=== PATIENT | male | born 1960 | race Caucasian/White ===

== ENCOUNTER 2016-12-11 14:15 | Day surgery (SDC) | payer BC, MEDICARE ==
[2016-12-05 09:56] LABS: HEMATOCRIT 48.8 % (37.9-51.0); HEMOGLOBIN 17.2 g/dL (13.5-17.0); HGB HCT DIFFERENCE 2.8; MEAN CORPUSCULAR HEMOGLOBIN 34.5 pg (27.0-33.4); MEAN CORPUSCULAR HGB CONC 35.3 g/dL (32.0-36.0); MEAN CORPUSCULAR VOLUME 98 fl (80-97); RED BLOOD COUNT 4.99 10^6/uL (4.35-5.55); RED CELL DISTRIBUTION WIDTH 12.9 % (11.5-14.0); WHITE BLOOD COUNT 4.4 10^3/uL (4.0-10.5)
[2016-12-05 10:35] LABS: ANION GAP 10 (5-19); BLOOD UREA NITROGEN 6 mg/dL (7-20); CALCIUM 9.7 mg/dL (8.4-10.2); CARBON DIOXIDE 25 mmol/L (22-30); CHLORIDE 100 mmol/L (98-107); CREATININE RESULT 0.97 mg/dL (0.52-1.25); GLUCOSE 100 mg/dL (75-110); POTASSIUM 4.6 mmol/L (3.6-5.0); SODIUM 135.1 mmol/L (137-145)
[~2016-12-11 14:15] MED LIST: ACETAMINOPHEN 325 MG TABLET PO PRN; CEFAZOLIN 1 GM/D5W RTU 1 GM/50 ML RTUPB IV PRN; DEXAMETHASONE SOD PHOSPHATE INJ 4 MG/1 ML VIAL ONE; KETOROLAC TROMETHAMINE 60 MG/2 ML SDV ONE; LACTATED RINGERS 1000 ML IV PRN; LIDOCAINE 0.5% INJ-PF (5 MG/ML) 50 ML SDV SUBCUT PRN; LIDOCAINE 2% INJ-PF (20 MG/ML) 10 ML AMPUL ONE; METOCLOPRAMIDE HCL INJ/PF 10 MG/2 ML SDV ONE; ONDANSETRON HCL INJ/PF 4 MG/2 ML SDV ONE; SUCCINYLCHOLINE CHLORIDE INJ 200 MG/10 ML VIAL ONE
[2016-12-11] MEDS ORDERED: RINGERS SOLUTION,LACTATED 500 ML IV ONE (16:30)
[2016-12-11] MEDS ORDERED: DEXMEDETOMIDINE INJ 80 MCG/20 ML VIAL IV ONE (17:09)
[2016-12-11] MEDS ORDERED: EPHEDRINE SULFATE INJ 50 MG/1 ML AMPULE ONE (17:09)
[2016-12-11] MEDS ORDERED: FENTANYL CITRATE INJ/PF 250 MCG/5 ML AMPULE ONE (17:09)
[2016-12-11] MEDS ORDERED: ACETAMINOPHEN 100 ML IV ONE (17:09)
[2016-12-11] MEDS ORDERED: MIDAZOLAM 2 MG/2 ML INJ ONE (17:09)
[2016-12-11] MEDS ORDERED: PROPOFOL INJ 200 MG/20 ML VIAL IV ONE (17:09)
[2016-12-11] MEDS ORDERED: BUPIVACAINE HCL 0.25 % INJ/PF (2.5 MG/1 ML) 30 ML VIAL INJ ONE ×2 (17:50)
[2016-12-11] MEDS ORDERED: MEPERIDINE HCL/PF INJ 25 MG/1 ML DISP.SYRIN IV PRN (17:54)
[2016-12-11] MEDS ORDERED: MORPHINE SULFATE 10 MG/ML INJ IV PRN (17:54)
[2016-12-11] MEDS ORDERED: PROMETHAZINE HCL INJ 25 MG/1 ML VIAL IV PRN ×2 (17:54)
[2016-12-11] MEDS ORDERED: ONDANSETRON HCL INJ/PF 4 MG/2 ML SDV IV PRN ×2 (17:54→18:23)
[2016-12-11] MEDS ORDERED: DIPHENHYDRAMINE HCL 50 MG/ML VIAL IV PRN (17:54)
[2016-12-11] MEDS ORDERED: FENTANYL CITRATE INJ/PF 100 MCG/2 ML AMPUL IV PRN ×3 (17:54)
[2016-12-11] MEDS ORDERED: OXYCODONE-ACETAMINOPHEN 5-325 MG TABLET PO PRN (18:23)
[2016-12-11] MEDS ORDERED: RINGERS SOLUTION,LACTATED 1,000 ML IV PRN (18:23)
--- NOTE | 2016-12-11 18:23 | Operative Report ---
Operative Report DATE OF SURGERY: 12/11/16 PREOPERATIVE DIAGNOSIS: Umbilical hernia POSTOPERATIVE DIAGNOSIS: Umbilical hernia OPERATION: Umbilical hernia repair SURGEON: EMMANUELLE MELENDEZ ANESTHESIA: GA TISSUE REMOVED OR ALTERED: Hernia sac and omentum COMPLICATIONS: None ESTIMATED BLOOD LOSS: minimal INTRAOPERATIVE FINDINGS: 1.5 cm multiple hernia fascial defect with incarcerated omentum PROCEDURE: Informed consent was obtained. Patient was brought to the operating room placed operating table in the supine position. After satisfactory induction of general anesthesia patient's abdomen was prepped and draped in usual sterile fashion. A semicircular infraumbilical incision was made and dissection carried down. The bellybutton was dissected off of the underlying hernia sac. The herniated contents were dissected free from the surrounding structures. The hernia sac was opened revealing incarcerated omentum. Portion of the omentum was taken by clamping dividing and tying. And remainder of the omentum was tucked back into the peritoneal cavity. The fascial defect measured about 1.5 cm in size. The hernia sac was excised. There were no underlying bowel adhesions. Primary repair was performed closing the fascia and the transverse orientation using interrupted Ethibond sutures. The repair came together well without tension. The bellybutton was tacked to the underlying fascia using interrupted Vicryl sutures. Hemostasis appeared excellent. The skin was closed with deep dermal interrupted Vicryl sutures followed by running subcuticular Monocryl suture. Marcaine was injected at the operative site. Patient tolerated procedure well with no apparent complications and was taken to the recovery area in stable condition.
--- NOTE | 2016-12-11 18:30 | PDOC DISCHARGE SUMMARY ---
Discharge Summary (SDC) - Discharge Final Diagnosis: Umbilical hernia Date of Surgery: 12/11/16 Discharge Date: 12/11/16 Condition: Good Treatment or Instructions: Underwent umbilical hernia repair. May discharge the patient home when met discharge criteria. Follow-up with me in 2 weeks. Stay active but avoid strenuous activity. May shower in 2 days. Keep Steri-Strips on. Prescriptions: Oxycodone HCl/Acetaminophen [Percocet 5-325 mg Tablet] 1 tab PO ASDIR PRN #25 tablet PRN Reason: Discharge Diet: As Tolerated Discharge Activity: Activity As Tolerated - Stay active but avoid strenuous activity. Report the Following to Your Physician Immediately: Fever over 101 Degrees, Unusual Bleeding, Redness, Drainage-Foul Smelling
[2016-12-11 20:25] VITALS: BP 169/91
--- NOTE | 2016-12-12 09:29 | EKG REPORT ---
SEVERITY:- NORMAL ECG - SINUS RHYTHM : Confirmed by: Jaron Paiz MD 12-Dec-2016 09:28:29
== END 2016-12-11 19:45 | disposition home or self-care (01) ==
LOC: OROUT 14:15 → 4S 19:39 → OROUT 19:45
PROVIDERS: ATTEND Surgery
PROC: 0WQF0ZZ Repair Abdominal Wall, Open Approach (ICD-10-PCS; principal; 2016-12-11 16:30)
DX: K42.9 Umbilical hernia without obstruction or gangrene (principal); E03.9 Hypothyroidism, unspecified; F43.10 Post-traumatic stress disorder, unspecified; F17.210 Nicotine dependence, cigarettes, uncomplicated; K21.9 Gastro-esophageal reflux disease without esophagitis; Z85.01 Personal history of malignant neoplasm of esophagus; Z79.899 Other long term (current) drug therapy; Z91.040 Latex allergy status
CPT/HCPCS: 36415; 85027; 80048; 88302 ×2; 93005; 93010; 49585; J2250; J0690; J1100; J3490 ×3; J1885; J3010; J2765; A9270; J0330; J2405; J2704; J0131; 750

== ENCOUNTER → 2019-02-15 | Outpatient (CLI) | payer MEDICARE ==
--- NOTE | 2019-02-17 16:26 | RADIOLOGY REPORT (SQ) ---
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 RADIONUCLIDE AND DOSE: 10.4 mCi F18 FDG The route of agent administration: Intravenous FASTING BLOOD SUGAR: 99 mg/dl CONTRAST TYPE AND DOSE: No CT contrast given. TECHNIQUE: Blood glucose level was verified. Above dose of FDG was injected intravenously. 2-D seg mented attenuation correction images were obtained from the base of the skull to the midthighs. Nonc ontrast CT images were obtained for attenuation correction and fusion with emission images. CT image s were performed without oral or intravenous contrast and are not sensitive for parenchymal lesions. A series of overlapping emission PET images were obtained. Images reviewed and manipulated at [facility] work station by the radiologist. Images stored on PACS. LIMITATIONS: None. FINDINGS: HEAD AND NECK: An ill-defined 7.5 x 5.2 cm mass is present in the left submandibular trian gle, extending into the left posterior tongue base and obliterating the left submandibular gland. Th is lesion has increased uptake with SUV of 11. There is mild narrowing of the hypopharynx and deviat ion of the airway to the right. Along the inferior aspect of this ill-defined mass, a well-circumscribed 4.7 x 4 cm cyst is present w ithout associated metabolic activity. Patient is post supraglottic laryngectomy with esophageal speech prosthesis. No other areas of incre ased metabolic activity over the head or neck. CHEST: No areas of abnormal metabolic activity in the chest. ABDOMEN AND PELVIS: No areas of abnormal metabolic activity in the abdomen or pelvis. Expected physi ologic activity is present in the genitourinary system and bowel. PROXIMAL LOWER EXTREMITIES: No areas of abnormal metabolic activity in the soft tissues of the lower extremities. BONES: No abnormal metabolic activity in the visualized skeleton. ADDITIONAL CT FINDINGS: Colonic diverticuli without CT signs of acute diverticulitis. Bandlike scarr ing in the lung bases bilaterally OTHER: Liver background activity 2.4 SUV. 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
== END ==
LOC: RAD 17:22
PROVIDERS: ATTEND Otolaryngology
DX: C02.9 Malignant neoplasm of tongue, unspecified (principal)
CPT/HCPCS: 78815; A9552

== ENCOUNTER 2019-04-11 12:22 | Inpatient (IN) | payer MEDICARE ==
[2019-04-11] MEDS ORDERED: NORMAL SALINE 1000 ML 1,000 ML IV ONE ×3 (12:43→18:00)
--- NOTE | 2019-04-11 12:45 | ER Document Report ---
ED Medical Screen (RME) - General Chief Complaint: Weakness Stated Complaint: WEAKNESS Time Seen by Provider: 04/11/19 12:38 Primary Care Provider: SARI MAYBERRY MD [Primary Care Provider] - Follow up as needed Mode of Arrival: Wheelchair Information source: Patient Notes: Patient presents with a complaint of low blood pressure feeling lightheaded dizzy and weak. Patient is currently receiving chemotherapy and had a history of high blood pressure. Patient was taken off of his blood pressure last week due to a drop in the blood pressure. Patient is also on antibiotics for recent skin infection. Patient denies any chest discomfort. 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 I have greeted and performed a rapid initial assessment of this patient. A comprehensive ED assessment and evaluation of the patient, analysis of test results and completion of the medical decision making process will be conducted by additional ED providers. TRAVEL OUTSIDE OF THE [place] IN LAST 30 DAYS: No - Related Data Allergies/Adverse Reactions: Tetanus Vaccines and Toxoid Allergy (Verified 12/11/16 15:39) Past Medical History - Past Medical History Cardiac Medical History: Reports: Hx Hypertension - "Sometimes its a little high" Denies: Hx Coronary Artery Disease, Hx Heart Attack Pulmonary Medical History: Reports: Hx Pneumonia - "A long time ago and it damaged my lungs" 20+ years ago Denies: Hx Asthma, Hx Bronchitis, Hx COPD Neurological Medical History: Denies: Hx Cerebrovascular Accident, Hx Seizures Musculoskeltal Medical History: Denies Hx Arthritis - Immunizations Hx Diphtheria, Pertussis, Tetanus Vaccination: No Physical Exam - Vital signs Vitals: Temp Pulse Resp BP Pulse Ox 98.1 F 114 H 16 85/55 L 99 04/11/19 12:35 04/11/19 12:35 04/11/19 12:35 04/11/19 12:35 04/11/19 12:35 - Cardiovascular Rhythm: Tachycardia Heart sounds: S1 appreciated, S2 appreciated Course - Vital Signs Vital signs: Temp Pulse Resp BP Pulse Ox 98.1 F 114 H 16 85/55 L 99 04/11/19 12:35 04/11/19 12:35 04/11/19 12:35 04/11/19 12:35 04/11/19 12:35 Doctor's Discharge - Discharge Referrals: SARI MAYBERRY MD [Primary Care Provider] - Follow up as needed
[2019-04-11 14:02] LABS: ABSOLUTE LYMPHOCYTES (AUTO) 0.1 10^3/uL (0.5-4.7); ABSOLUTE NEUT (AUTO) 0.7 10^3/uL (1.7-8.2); BASOPHILS % (AUTO) 0.8 % (0-2); EOSINOPHILS % (AUTO) 0.2 % (0-6); HEMATOCRIT 26.9 % (37.9-51.0); HEMOGLOBIN 9.7 g/dL (13.5-17.0); LYMPHOCYTES % (AUTO) 10.6 % (13-45); MEAN CORPUSCULAR HEMOGLOBIN 33.1 pg (27.0-33.4); MEAN CORPUSCULAR HGB CONC 36.1 g/dL (32.0-36.0); MEAN CORPUSCULAR VOLUME 92 fl (80-97); MONOCYTES % (AUTO) 1.7 % (3-13); PLATELET COUNT 103 10^3/uL (150-450); RED BLOOD COUNT 2.93 10^6/uL (4.35-5.55); RED CELL DISTRIBUTION WIDTH 11.7 % (11.5-14.0); SEGMENTED NEUTROPHILS % (AUTO) 86.7 % (42-78); TOTAL CELLS COUNTED % (AUTO) 100 %
[2019-04-11 14:03] LABS: VENOUS BLOOD BASE EXCESS 1.7 mmol/L; VENOUS BLOOD HCO3 27.7 mmol/L (20-32); VENOUS BLOOD PCO2 48.8 mmHg (35-63); VENOUS BLOOD PH 7.37 (7.30-7.42)
[2019-04-11 14:05] LABS: PROTHROMBIN TIME 18.2 SEC (11.4-15.4)
--- NOTE | 2019-04-11 14:07 | RADIOLOGY REPORT (SQ) ---
EXAM DESCRIPTION: CHEST SINGLE VIEW COMPLETED DATE/TIME: 04/11/2019 1:26 pm REASON FOR STUDY: chemo, hypotension COMPARISON: None. EXAM PARAMETERS: NUMBER OF VIEWS: One view. TECHNIQUE: Single frontal radiographic view of the chest acquired. RADIATION DOSE: NA LIMITATIONS: Positioning. FINDINGS: LUNGS AND PLEURA: Volume loss on the right. No infiltrate. Clips overlying the thyroid b ed. MEDIASTINUM AND HILAR STRUCTURES: No masses. Contour normal. HEART AND VASCULAR STRUCTURES: Heart normal in size. Normal vasculature. BONES: No acute findings. HARDWARE: None in the chest. OTHER: No other significant finding. IMPRESSION: NO ACUTE RADIOGRAPHIC FINDING IN THE CHEST. TECHNICAL DOCUMENTATION: JOB ID: [id number] [employer]- All Rights Reserved Reading location - IP/workstation name: [email or web address]
[2019-04-11 14:20] LABS: ALANINE AMINOTRANSFERASE 26 U/L (21-72); ALBUMIN 2.9 g/dL (3.5-5.0); ALKALINE PHOSPHATASE 61 U/L (38-126); ANION GAP 9 (5-19); ASPARTATE AMINO TRANSFERASE 17 U/L (17-59); BILIRUBIN,DIRECT 0.9 mg/dL (0.0-0.4); BILIRUBIN,TOTAL 1.9 mg/dL (0.2-1.3); BLOOD UREA NITROGEN 21 mg/dL (7-20); CALCIUM 8.3 mg/dL (8.4-10.2); CARBON DIOXIDE 28 mmol/L (22-30); CHLORIDE 95 mmol/L (98-107); GLUCOSE 123 mg/dL (75-110); POTASSIUM 3.5 mmol/L (3.6-5.0); SODIUM 132.1 mmol/L (137-145); TOTAL PROTEIN 5.3 g/dL (6.3-8.2)
[2019-04-11 14:26] LABS: WHITE BLOOD COUNT 0.8 10^3/uL (4.0-10.5)
[2019-04-11 14:27] LABS: RBC MORPHOLOGY COMMENT NORMO-CYTIC/CHROMIC
[2019-04-11 14:28] LABS: TOXIC GRANULATION SLIGHT
[2019-04-11 14:29] LABS: PLATELET COMMENT DECREASED; TOXIC VACUOLATION PRESENT
--- NOTE | 2019-04-11 15:10 | ER Document Report ---
ED General - General Mode of Arrival: Wheelchair TRAVEL OUTSIDE OF THE [place] IN LAST 30 DAYS: No <KYAW ALEJO - Last Filed: 04/11/19 15:06> - Related Data Home Medications: Omeprazole, Synthroid, hydrochlorothiazide, Ventolin, o xycodone, potassium, fluconazole, sucralfate, prochlorperazine, [place] mouthwash <KARLY MARTE - Last Filed: 04/11/19 18:03> - General Chief Complaint: Weakness Stated Complaint: WEAKNESS Time Seen by Provider: 04/11/19 12:38 Primary Care Provider: SARI MAYBERRY MD [NO LOCAL MD] - Follow up as needed - [facility] Notes: Patient is a 58-year-old gentleman, currently with cancer of the jaw, receiving chemotherapy, who presents emergency department for evaluation of dizziness, weakness, seeing spots. 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 He just received his fourth dose of chemotherapy last . On Thursday he was found to be hypotensive, hypokalemic, hypomagnesemic. He was given IV fluids and electrolyte replacement. He was taken off of all of his blood pressure medications. He has been on antibiotics recently for "lesions" on his scalp. He was told that they were likely infectious. He has been on doxycycline, took a dose this morning, and it seemed to have improved. He does have some redness and swelling in his anterior neck area. He states that is been present and new over the last 2 to 3 days. No known fevers. The patient states he has had chills with chemotherapy in the past. Still urinating. Normal bowel movements. (KYAW ALEJO) - Related Data Allergies/Adverse Reactions: Tetanus Vaccines and Toxoid Allergy (Verified 12/11/16 15:39) Past Medical History - General Information source: Patient, Relative - Social History Smoking Status: Former Smoker Family History: Reviewed & Not Pertinent Patient has suicidal ideation: No Patient has homicidal ideation: No - Past Medical History Cardiac Medical History: Reports: Hx Hypertension - Recently taken off medication Denies: Hx Coronary Artery Disease, Hx Heart Attack Pulmonary Medical History: Reports: Hx Pneumonia - "A long time ago and it damaged my lungs" 20+ years ago Denies: Hx Asthma, Hx Bronchitis, Hx COPD Neurological Medical History: Denies: Hx Cerebrovascular Accident, Hx Seizures Renal/ Medical History: Denies: Hx Peritoneal Dialysis Malignancy Medical History: Reports Other - Cancer of mandible, 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 GI Medical History: Reports: Hx Gastroesophageal Reflux Disease Musculoskeletal Medical History: Denies Hx Arthritis - Immunizations Hx Diphtheria, Pertussis, Tetanus Vaccination: No - Patient allergic <KYAW ALEJO - Last Filed: 04/11/19 15:06> Review of Systems - Review of Systems Constitutional: See HPI EENT: See HPI Cardiovascular: See HPI Respiratory: No symptoms reported Gastrointestinal: No symptoms reported Genitourinary: No symptoms reported Male Genitourinary: No symptoms reported Musculoskeletal: No symptoms reported Skin: See HPI Neurological/Psychological: No symptoms reported <KYAW ALEJO - Last Filed: 04/11/19 15:06> Physical Exam <KYAW ALEJO - Last Filed: 04/11/19 15:06> - Vital signs Vitals: Temp Pulse Resp BP Pulse Ox 98.1 F 114 H 16 85/55 L 99 04/11/19 12:35 04/11/19 12:35 04/11/19 12:35 04/11/19 12:35 04/11/19 12:35 - Notes Notes: This is a 58-year-old male who appears stated age in no acute distress. Head is normocephalic and atraumatic. Pupils are equal round, reactive to light. Oral mucosa is moist. Patient has trach in place. He has significant surrounding erythema and edema that tracks up under his mandible. There is induration surrounding the entire trach site. Heart is regular rate and rhythm, lungs are clear to auscultation bilaterally. Abdomen is soft, nontender, normal active bowel sounds. Extremities without cyanosis or clubbing, no edema. Posterior calves nontender. Peripheral pulses are equal. Patient is awake and alert. Moves all 4 extremities spontaneously. (KYAW ALEJO) Course - Laboratory Result Diagrams: 04/11/19 13:40 04/11/19 13:40 <KYAW ALEJO - Last Filed: 04/11/19 15:06> - Laboratory Result Diagrams: 04/11/19 13:40 04/11/19 13:40 - Diagnostic Test Radiology reviewed: Reports reviewed <KARLY MARTE - Last Filed: 07/01/19 18:03> - Re-evaluation Re-evalutation: 04/11/19 15:09 Patient presents emergency department for evaluation. He had initial laboratory investigations as ordered through triage. I am concerned about the possibility of this patient being septic as an etiology of his low blood pressure. The erythema to his anterior neck for him is brand-new. He is pancytopenic from his chemotherapy. He is hypotensive and tachycardic upon arrival. He is already been on doxycycline, and I am concerned about cellulitis and/or abscess in his anterior neck. Patient is given further IV fluids, as he has no history of congestive heart failure. Obtaining CT scan of the neck to rule out abscess. (KYAW ALEJO) 04/11/19 17:58 CT scan revealed tumor that is shrunken, but could not rule out abscess. Patient has had 2 L of IV fluid in his blood pressure is still 91/53. His white count is very low, although is not truly neutropenic. His absolute neutrophil count is over 500. My primary concern in this patient is that his symptoms are beyond secondary to dehydration, but more secondary to sepsis. He does have a low white count, is tachycardic, and has a source of potential infection surrounding his trach. He was medicated with cefepime and vancomycin. I spoke with Dr. Sherman, he will admit the patient. (KARLY MARTE) - Vital Signs Vital signs: Temp Pulse Resp BP Pulse Ox 98.1 F 114 H 20 94/58 L 91 L 04/11/19 12:35 04/11/19 12:35 04/11/19 14:01 04/11/19 14:01 04/11/19 14:00 - Laboratory Laboratory results interpreted by me: 04/11/19 04/11/19 04/11/19 13:26 13:40 13:40 WBC 0.8 L* RBC 2.93 L Hgb 9.7 L Hct 26.9 L MCHC 36.1 H Plt Count 103 L Seg Neutrophils % 86.7 H Lymphocytes % 10.6 L Monocytes % 1.7 L Absolute Neutrophils 0.7 L Absolute Lymphocytes 0.1 L Absolute Monocytes 0.0 L PT 18.2 H Sodium Potassium Chloride BUN Glucose POC Glucose 137 H Calcium Magnesium Total Bilirubin Direct Bilirubin Total Protein Albumin Urine Protein Urine Blood Urine Urobilinogen 07/10/3004/11/19 04/11/19 13:40 13:40 15:35 WBC RBC Hgb Hct MCHC Plt Count Seg Neutrophils % Lymphocytes % Monocytes % Absolute Neutrophils Absolute Lymphocytes Absolute Monocytes PT Sodium 132.1 L Potassium 3.5 L Chloride 95 L BUN 21 H Glucose 123 H POC Glucose Calcium 8.3 L Magnesium 1.4 L Total Bilirubin 1.9 H Direct Bilirubin 0.9 H Total Protein 5.3 L Albumin 2.9 L Urine Protein 100 H Urine Blood SMALL H Urine Urobilinogen 2.0 H - Diagnostic Test Radiology results interpreted by me: 04/11/19 17:59 Chest X-Ray 04/11/19 12:44 IMPRESSION: NO ACUTE RADIOGRAPHIC FINDING IN THE CHEST. Soft Tissue Neck CT 04/11/19 14:59 IMPRESSION: Postoperative findings of laryngectomy and neck dissection. There is a redemonstrated large left submandibular mass, although slightly decreased in size and bulk compared to prior examination is now overtly cavitary, measuring approximately 7.9 x 3.4 x 6.8 cm. Infection or abscess within a necrotic mass cannot be excluded. This may communicate to the oral cavity although an obvious communication is not visualized. (KARLY MARTE) Discharge <KYAW ALEJO H - Last Filed: 04/11/19 15:06> - Discharge Admitting Provider: Whit (Hospitalist) Unit Admitted: [facility] <KARLY MARTE - Last Filed: 04/11/19 18:03> - Discharge Clinical Impression: Sepsis, Hyponatremia, Hypotension Condition: Stable Disposition: ADMITTED INPATIENT Referrals: SARI MAYBERRY MD [NO LOCAL MD] - Follow up as needed
[2019-04-11] MEDS ORDERED: ONDANSETRON HCL INJ/PF 4 MG/2 ML SDV IV ONE (15:37)
[2019-04-11] MEDS ORDERED: HYDROMORPHONE HCL INJ/PF 2 MG/ML AMPULE IV ONE (15:37)
--- NOTE | 2019-04-11 16:11 | RADIOLOGY REPORT (SQ) ---
EXAM DESCRIPTION: CT SOFT TISSUE NECK WITH COMPLETED DATE/TIME: 04/11/2019 3:49 pm REASON FOR STUDY: erythema, induration anterior neck COMPARISON: PET-CT, 02/15/2019 TECHNIQUE: Post IV contrasted scanning from skull base through lung apices with review of bone, soft tissue and lung windows. Reconstructed coronal and sagittal MPR images reviewed. All images stored on PACS. All CT scanners at this facility use dose modulation, iterative reconstruction, and/or weight based d osing when appropriate to reduce radiation dose to as low as reasonably achievable (ALARA). [facility]: Dose Right [facility]: CareDose [facility]: Dose Right [facility]: Teradose 4D [facility]: MIOX CONTRAST TYPE AND DOSE: contrast/concentration: Isovue 350.00 mg/ml; Total Contrast Delivered: 75.0 ml; Total Saline Delivered: 55.0 ml RENAL FUNCTION: GFR > 60. RADIATION DOSE: CT Rad equipment meets quality standard of care and radiation dose reduction techniq ues were employed. CTDIvol: 14.7 mGy. DLP: 442 mGy-cm. . LIMITATIONS: None. FINDINGS: SKULL BASE: Intact. MAJOR SALIVARY GLANDS: No solid or cystic masses. No inflammatory changes. LYMPHADENOPATHY: No evident lymphadenopathy. Postoperative findings of prior bilateral neck dissecti on. MUCOSAL MASSES OR ASYMMETRY: Redemonstrated large left-sided submandibular mass, which although sligh tly decreased in size and bulk compared to prior examination is now overtly cavitary, measuring appro ximately 7.9 x 3.4 x 6.8 cm LARYNX/CORDS: Status post laryngectomy with tracheostomy. VASCULAR STRUCTURES: The major vessels are patent. LUNG APICES: Mild emphysema. BONES: Intact. THYROID: Normal size. No masses. PARANASAL SINUSES: Clear. OTHER: No other significant finding. IMPRESSION: Postoperative findings of laryngectomy and neck dissection. There is a redemonstrated l arge left submandibular mass, although slightly decreased in size and bulk compared to prior examinat ion is now overtly cavitary, measuring approximately 7.9 x 3.4 x 6.8 cm. Infection or abscess within a necrotic mass cannot be excluded. This may communicate to the oral cavity although an obvious com munication is not visualized. TECHNICAL DOCUMENTATION: JOB ID: [id number] Quality ID # [id number]: Final reports with documentation of one or more dose reduction techniques (e.g., Au tomated exposure control, adjustment of the mA and/or kV according to patient size, use of iterative reconstruction technique) 2010 [email or web address]- All Rights Reserved Reading location - IP/workstation name: [email or web address]
[2019-04-11] MEDS ORDERED: VANCOMYCIN HCL INJ 1000 MG VIAL IV ONE (17:38)
[2019-04-11] MEDS ORDERED: CEFEPIME 2 GM/D5W RTU 2 GM/50 ML RTUPB IV ONE (17:38)
[2019-04-11 17:50] LABS: APPEARANCE,URINE SLIGHTLY-CLOUDY; BILIRUBIN,URINE NEGATIVE (NEGATIVE); GLUCOSE, URINE NEGATIVE (NEGATIVE); KETONES,URINE NEGATIVE (NEGATIVE); LEUKOCYTE ESTERASE,URINE NEGATIVE (NEGATIVE); NITRITE,URINE NEGATIVE (NEGATIVE); PROTEIN,URINE 100 mg/dL (NEGATIVE); URINE SPECIFIC GRAVITY 1.023
[2019-04-11 17:52] LABS: COLOR,URINE ORANGE
--- NOTE | 2019-04-11 18:34 | PDOC H&P ---
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 Last chemotherapy last . During chemotherapy patient was found to be hypotensive, dizzy, was given magnesium and IV fluids and was sent home on doxycycline for his left scalp redness. Patient was doing fine until Thursday when he started feeling weak, dizzy, and low p.o. intake. On Thursday he continued feeling weak, dizzy and seeing spots. In ED he was found to be hypotensive, pancytopenia, ANC 700. He was started on IV fluids and a CT of the neck was done with the following Postoperative findings of laryngectomy and neck dissection. There is a redemons trated large left mandibular mass, although slightly decreased in size and bulk compared to prior examination, is not overtly cavitary, measuring approximately 7.9 x 3.4 x 6.8 cm. Infection or abscess with a necrotic mass cannot be excluded. Patient is left jaw swelling, pain, erythema and dizziness, weakness, seeing spots, nausea, low p.o. intake and chills. Denies any shortness of breath, chest pain, cough, vomiting, abdominal pain, diarrhea, dysuria, hematuria, urgency or hesitancy. 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 GI Medical History: Reports: Gastroesophageal Reflux Disease Musculoskeltal Medical History: Denies: Arthritis Hematology: Denies: Anemia Social History Smoking Status: Former Smoker Frequency of Alcohol Use: Heavy Family History Family History: Reviewed & Not Pertinent Parental Family History Reviewed: Yes Children Family History Reviewed: Yes Sibling(s) Family History Reviewed.: Yes Medication/Allergy Allergies/Adverse Reactions: Tetanus Vaccines and Toxoid Allergy (Verified 12/11/16 15:39) Review of Systems Review of Systems: as per hpi Physical Exam Vital Signs: Temp Pulse Resp BP Pulse Ox 98.1 F 114 H 20 94/58 L 91 L 04/11/19 12:35 04/11/19 12:35 04/11/19 14:01 04/11/19 14:01 04/11/19 14:00 Intake & Output 04/10/19 04/11/19 04/12/19 06:59 06:59 06:59 Intake Total 1000 Balance 1000 Weight 84.8 kg General appearance: PRESENT: no acute distress, well-developed, well-nourished Head exam: PRESENT: atraumatic, normocephalic Neck exam: PRESENT: tracheostomy, other - Left neck and mandibular erythema and swelling, TTP over left lateral neck. No active discharge.. ABSENT: carotid bruit, JVD, lymphadenopathy, thyromegaly Respiratory exam: PRESENT: clear to auscultation damian. ABSENT: rales, rhonchi, wheezes Cardiovascular exam: PRESENT: RRR. ABSENT: diastolic murmur, rubs, systolic murmur GI/Abdominal exam: PRESENT: normal bowel sounds, soft. ABSENT: distended, guarding, mass, organolmegaly, rebound, tenderness Neurological exam: PRESENT: alert, awake, oriented to person, oriented to place, oriented to time, oriented to situation, CN II-XII grossly intact. ABSENT: motor sensory deficit Results Laboratory Results: 04/11/19 13:40 04/11/19 13:40 04/11/19 04/11/19 04/11/19 13:40 13:40 13:40 WBC 0.8 L* RBC 2.93 L Hgb 9.7 L Hct 26.9 L MCV 92 MCH 33.1 MCHC 36.1 H RDW 11.7 Plt Count 103 L Seg Neutrophils % 86.7 H Lymphocytes % 10.6 L Monocytes % 1.7 L Eosinophils % 0.2 Basophils % 0.8 Absolute Neutrophils 0.7 L Absolute Lymphocytes 0.1 L Absolute Monocytes 0.0 L Absolute Eosinophils 0.0 Absolute Basophils 0.0 VBG pH VBG pCO2 VBG HCO3 VBG Base Excess Sodium 132.1 L Potassium 3.5 L Chloride 95 L Carbon Dioxide 28 Anion Gap 9 BUN 21 H Creatinine 0.78 Est GFR ( Amer) > 60 Est GFR (Non-Af Amer) > 60 Glucose 123 H Lactic Acid 1.8 Calcium 8.3 L Magnesium Total Bilirubin 1.9 H AST 17 ALT 26 Alkaline Phosphatase 61 Total Protein 5.3 L Albumin 2.9 L Urine Color Urine Appearance Urine pH Ur Specific [place] Urine Protein Urine Glucose (UA) Urine Ketones Urine Blood Urine Nitrite Ur Leukocyte Esterase Urine WBC (Auto) Urine RBC (Auto) 04/11/19 04/11/19 04/11/19 13:40 13:40 15:35 WBC RBC Hgb Hct MCV MCH MCHC RDW Plt Count Seg Neutrophils % Lymphocytes % Monocytes % Eosinophils % Basophils % Absolute Neutrophils Absolute Lymphocytes Absolute Monocytes Absolute Eosinophils Absolute Basophils VBG pH 7.37 VBG pCO2 48.8 VBG HCO3 27.7 VBG Base Excess 1.7 Sodium Potassium Chloride Carbon Dioxide Anion Gap BUN Creatinine Est GFR ( Amer) Est GFR (Non-Af Amer) Glucose Lactic Acid Calcium Magnesium 1.4 L Total Bilirubin AST ALT Alkaline Phosphatase Total Protein Albumin Urine Color ORANGE Urine Appearance SLIGHTLY-CLOUDY Urine pH 6.0 Ur Specific [place] 1.023 Urine Protein 100 H Urine Glucose (UA) NEGATIVE Urine Ketones NEGATIVE Urine Blood SMALL H Urine Nitrite NEGATIVE Ur Leukocyte Esterase NEGATIVE Urine WBC (Auto) 4 Urine RBC (Auto) 1 Impressions: Chest X-Ray 04/11/19 12:44 IMPRESSION: NO ACUTE RADIOGRAPHIC FINDING IN THE CHEST. Soft Tissue Neck CT 04/11/19 14:59 IMPRESSION: Postoperative findings of laryngectomy and neck dissection. There is a redemonstrated large left submandibular mass, although slightly decreased in size and bulk compared to prior examination is now overtly cavitary, measuring approximately 7.9 x 3.4 x 6.8 cm. Infection or abscess within a necrotic mass cannot be excluded. This may communicate to the oral cavity although an obvious communication is not visualized. Assessment and Plan - Diagnosis (1) SIRS (systemic inflammatory response syndrome) Is this a current diagnosis for this admission?: Yes Plan: Pancytopenia with ANC 700. Likely secondary to chemotherapy. Lactic acid WNL. SBP 8394. T-max 98.1. IV fluid resuscitation guided by volume status, empiric IV antibiotics, blood and sputum culture, neutropenic precautions. (2) Pancytopenia Is this a current diagnosis for this admission?: Yes Plan: Likely due to recent chemotherapy. ANC 700. Panculture. Neutropenic precautions. (3) Hx of laryngectomy Is this a current diagnosis for this admission?: Yes Plan: Status post laryngectomy due to metastatic esophageal cancer. Tracheostomy in place. (4) History of esophageal cancer Is this a current diagnosis for this admission?: Yes Plan: History of esophageal cancer metastasized to larynx and left mandible. Sees Dr. Redmond oncologist at [facility].
[2019-04-11] MEDS ORDERED: PROMETHAZINE HCL INJ 25 MG/1 ML VIAL IV PRN (18:42)
[2019-04-11] MEDS ORDERED: OXYCODONE-ACETAMINOPHEN 5-325 MG TABLET PO PRN (18:42)
[2019-04-11] MEDS ORDERED: ONDANSETRON HCL INJ/PF 4 MG/2 ML SDV IV PRN (18:42)
[2019-04-11] MEDS ORDERED: VANCOMYCIN HCL 0 MG in DEXTROSE 5%-WATER 250 ML IV NR (18:45)
[2019-04-11] MEDS ORDERED: MORPHINE SULFATE 10 MG/ML INJ IV PRN (18:47)
[2019-04-11] MEDS ORDERED: POTASSI CL 20 MEQ/50 ML RIDER 20 MEQ/50 ML RTUPB IV ONE (19:15)
[2019-04-11] MEDS ORDERED: VANCOMYCIN HCL 1,500 MG in DEXTROSE 5%-WATER 250 ML IV ONE (19:30)
[2019-04-11] MEDS ORDERED: MAGNESIUM SULFATE/D5W 1 GM/100 ML RTUPB IV ONE (19:30)
[2019-04-11] MEDS: NORMAL SALINE 1000 ML 1,000 ML IV PRN (22:40)
[2019-04-11] MEDS: CEFEPIME 1 GM/D5W RTU 1 GM/50 ML RTUPB IV SCH (22:43)
[2019-04-11] MEDS: FAMOTIDINE 20 MG TABLET PO SCH (22:44)
[2019-04-12] MEDS: CEFEPIME 1 GM/D5W RTU 1 GM/50 ML RTUPB IV SCH ×3 (00:18→21:27)
--- NOTE | 2019-04-12 00:41 | EKG REPORT ---
SEVERITY:- ABNORMAL ECG - SINUS RHYTHM WITH APCs MULTIFORM VENTRICULAR PREMATURE COMPLEXES : Confirmed by: Bhakti Fischer 12-Apr-2019 00:40:48
[2019-04-12] MEDS: VANCOMYCIN HCL 1,000 MG in DEXTROSE 5%-WATER 250 ML IV SCH ×3 (05:19→21:29)
[2019-04-12 06:33] LABS: HEMOGLOBIN 8.3 g/dL (13.5-17.0); MEAN CORPUSCULAR HEMOGLOBIN 33.2 pg (27.0-33.4); MEAN CORPUSCULAR HGB CONC 36.3 g/dL (32.0-36.0); MEAN CORPUSCULAR VOLUME 91 fl (80-97); RED BLOOD COUNT 2.52 10^6/uL (4.35-5.55); RED CELL DISTRIBUTION WIDTH 11.8 % (11.5-14.0)
[2019-04-12 06:44] LABS: WHITE BLOOD COUNT 0.4 10^3/uL (4.0-10.5)
[2019-04-12 06:45] LABS: PLATELET COUNT 62 10^3/uL (150-450)
[2019-04-12 06:49] LABS: ANION GAP 8 (5-19); BLOOD UREA NITROGEN 12 mg/dL (7-20); CALCIUM 7.8 mg/dL (8.4-10.2); CARBON DIOXIDE 22 mmol/L (22-30); CHLORIDE 103 mmol/L (98-107); GLUCOSE 124 mg/dL (75-110); POTASSIUM 3.4 mmol/L (3.6-5.0); SODIUM 132.9 mmol/L (137-145)
[2019-04-12] MEDS: IPRATROPIUM/ALBUTEROL 0.5-2.5 MG/3 ML AMPUL NEB PRN (08:24)
[2019-04-12] MEDS: FAMOTIDINE 20 MG TABLET PO SCH ×2 (09:35→21:27)
[2019-04-12] MEDS: DOCUSATE SODIUM 100 MG CAPSULE PO SCH (09:35)
[2019-04-12] MEDS ORDERED: POTASSIUM CHLORIDE 20 MEQ/50 ML RTU IV ONE (11:00)
[2019-04-12] MEDS: MORPHINE SULFATE 10 MG/ML INJ IV PRN (12:30)
[2019-04-12 14:50] LABS: PATH REVIEW PATHOLOGIST REVIEWED
[2019-04-12] MEDS: ACYCLOVIR 800 MG TABLET PO SCH ×2 (15:46→19:51)
[2019-04-12] MEDS: NORMAL SALINE 1000 ML 1,000 ML IV PRN (21:39)
[2019-04-13] MEDS: VANCOMYCIN HCL 1,000 MG in DEXTROSE 5%-WATER 250 ML IV SCH ×2 (05:01→15:33)
[2019-04-13 06:22] LABS: HEMATOCRIT 22.7 % (37.9-51.0); MEAN CORPUSCULAR HEMOGLOBIN 32.3 pg (27.0-33.4); MEAN CORPUSCULAR HGB CONC 35.3 g/dL (32.0-36.0); MEAN CORPUSCULAR VOLUME 92 fl (80-97); RED BLOOD COUNT 2.48 10^6/uL (4.35-5.55); RED CELL DISTRIBUTION WIDTH 12.1 % (11.5-14.0)
[2019-04-13 06:30] LABS: ANION GAP 9 (5-19); BLOOD UREA NITROGEN 11 mg/dL (7-20); CALCIUM 7.7 mg/dL (8.4-10.2); CARBON DIOXIDE 22 mmol/L (22-30); CHLORIDE 102 mmol/L (98-107); GLUCOSE 126 mg/dL (75-110); SODIUM 132.7 mmol/L (137-145)
[2019-04-13 06:34] LABS: POTASSIUM 2.9 mmol/L (3.6-5.0)
[2019-04-13] MEDS ORDERED: POTASSIUM CHLORIDE 10 MEQ CAPSULE.ER PO ONE (06:44)
[2019-04-13 06:46] LABS: VANCOMYCIN,TROUGH 29.4 ug/mL (5.0-20.0)
[2019-04-13 07:11] LABS: PLATELET COUNT 62 10^3/uL (150-450)
[2019-04-13 07:12] LABS: WHITE BLOOD COUNT 0.4 10^3/uL (4.0-10.5)
[2019-04-13] MEDS: MAGNESIUM SULFATE/D5W 1 GM/100 ML RTUPB IV SCH ×2 (08:12→11:06)
[2019-04-13] MEDS: POTASSI CL 20 MEQ/50 ML RIDER 20 MEQ/50 ML RTUPB IV SCH ×2 (08:33→11:07)
[2019-04-13 09:11] LABS: ABSOLUTE LYMPHOCYTES# (MANUAL) 0.2 10^3/uL (0.5-4.7); ABSOLUTE MONOCYTES # (MANUAL) 0.1 10^3/uL (0.1-1.4); BAND NEUTROPHILS % (MANUAL) 4 % (3-5); BASOPHILS % (MANUAL) 0 % (0-2); EOSINOPHILS % (MANUAL) 0 % (0-6); LYMPHOCYTES % (MANUAL) 58 % (13-45); METAMYELOCYTES % (MANUAL) 2 % (0); MONOCYTES % (MANUAL) 14 % (3-13); SEGMENTED NEUTROPHILS % (MAN) 22 % (42-78); TOTAL CELLS COUNTED 50
[2019-04-13 09:17] LABS: PLATELET COMMENT DECREASED; RBC MORPHOLOGY COMMENT NORMO-CYTIC/CHROMIC
[2019-04-13] MEDS ORDERED: POTASSIUM CHLORIDE 20 MEQ PACKET PO SCH (10:00)
[2019-04-13] MEDS ORDERED: (PENDING PHARMACY ID) (Fluconazole [Diflucan] 200 MG) PO SCH (10:00)
[2019-04-13] MEDS: NORMAL SALINE 1000 ML 1,000 ML IV PRN (11:06)
[2019-04-13] MEDS: MAGNESIUM OXIDE 400 MG TABLET PO SCH ×2 (11:07→18:06)
[2019-04-13] MEDS: CEFEPIME 1 GM/D5W RTU 1 GM/50 ML RTUPB IV SCH ×2 (11:07→21:12)
[2019-04-13] MEDS: ACYCLOVIR 800 MG TABLET PO SCH ×2 (11:08→18:06)
[2019-04-13] MEDS: FAMOTIDINE 20 MG TABLET PO SCH ×2 (11:08→21:14)
[2019-04-13] MEDS: DOCUSATE SODIUM 100 MG CAPSULE PO SCH (11:09)
[2019-04-13] MEDS: MORPHINE SULFATE 10 MG/ML INJ IV PRN (12:04)
[2019-04-13] MEDS: IPRATROPIUM/ALBUTEROL 0.5-2.5 MG/3 ML AMPUL NEB PRN (12:38)
[2019-04-13 14:26] LABS: VANCOMYCIN,TROUGH 9.9 ug/mL (5.0-20.0)
--- NOTE | 2019-04-13 16:35 | PDOC PROGRESS REPORT ---
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 Last chemotherapy last . During chemotherapy patient was found to be hypotensive, dizzy, was given magnesium and IV fluids and was sent home on doxycycline for his left scalp redness. Patient was doing fine until Thursday when he started feeling weak, dizzy, and low p.o. intake. On Thursday he continued feeling weak, dizzy and seeing spots. In ED he was found to be hypotensive, pancytopenia, ANC 700. He was started on IV fluids and a CT of the neck was done with the following Postoperative findings of laryngectomy and neck dissection. There is a redemonstrated large left mandibular mass, although slightly decreased in size a nd bulk compared to prior examination, is not overtly cavitary, measuring approximately 7.9 x 3.4 x 6.8 cm. Infection or abscess with a necrotic mass cannot be excluded. Patient is left jaw swelling, pain, erythema and dizziness, weakness, seeing spots, nausea, low p.o. intake and chills. Denies any shortness of breath, chest pain, cough, vomiting, abdominal pain, diarrhea, dysuria, hematuria, urgency or hesitancy. No acute events overnight. Reason For Visit: SIRS Physical Exam Vital Signs: Temp Pulse Resp BP Pulse Ox 99.1 F 81 18 137/75 H 95 04/13/19 03:26 04/13/19 12:38 04/13/19 12:38 04/13/19 03:26 04/13/19 12:38 Intake & Output 04/12/19 04/13/19 04/14/19 06:59 06:59 06:59 Intake Total 3250 2450 1150 Output Total 600 0 Balance 2650 2450 1150 Weight 79.9 kg 79.3 kg General appearance: PRESENT: mild distress Head exam: PRESENT: atraumatic, normocephalic Neck exam: ABSENT: carotid bruit, JVD, lymphadenopathy, thyromegaly Respiratory exam: PRESENT: clear to auscultation damian, other - Tracheostomy site looks red, mild swelling, with dried blood.. ABSENT: rales, rhonchi, wheezes Cardiovascular exam: PRESENT: RRR. ABSENT: diastolic murmur, rubs, systolic murmur GI/Abdominal exam: PRESENT: normal bowel sounds, soft. ABSENT: distended, guarding, mass, organolmegaly, rebound, tenderness Neurological exam: PRESENT: alert, awake, oriented to person, oriented to place, oriented to time, oriented to situation, CN II-XII grossly intact. ABSENT: motor sensory deficit Psychiatric exam: PRESENT: agitated, anxious, depressed Results Laboratory Results: 04/13/19 05:54 04/13/19 05:54 04/13/19 04/13/19 04/13/19 05:54 05:54 05:54 WBC 0.4 L* Cancelled RBC 2.48 L Cancelled Hgb 8.0 L Cancelled Hct 22.7 L Cancelled MCV 92 Cancelled MCH 32.3 Cancelled MCHC 35.3 Cancelled RDW 12.1 Cancelled Plt Count 62 L Cancelled Seg Neutrophils % Not Reportable Cancelled Lymphocytes % Not Reportable Cancelled Monocytes % Not Reportable Cancelled Eosinophils % Not Reportable Cancelled Basophils % Not Reportable Cancelled Absolute Neutrophils Not Reportable Cancelled Absolute Lymphocytes Not Reportable Cancelled Absolute Monocytes Not Reportable Cancelled Absolute Eosinophils Not Reportable Cancelled Absolute Basophils Not Reportable Cancelled Sodium 132.7 L Potassium 2.9 L* Chloride 102 Carbon Dioxide 22 Anion Gap 9 BUN 11 Creatinine 0.45 L Est GFR ( Amer) > 60 Est GFR (Non-Af Amer) > 60 Glucose 126 H Calcium 7.7 L Phosphorus Magnesium 1.5 L 04/13/19 05:54 WBC RBC Hgb Hct MCV MCH MCHC RDW Plt Count Seg Neutrophils % Lymphocytes % Monocytes % Eosinophils % Basophils % Absolute Neutrophils Absolute Lymphocytes Absolute Monocytes Absolute Eosinophils Absolute Basophils Sodium Potassium Chloride Carbon Dioxide Anion Gap BUN Creatinine Est GFR ( Amer) Est GFR (Non-Af Amer) Glucose Calcium Phosphorus 2.4 L Magnesium 04/11/19 15:35 Clean Catch Midstream Urine Culture - Final NO GROWTH 2 DAYS Impressions: Chest X-Ray 04/11/19 12:44 IMPRESSION: NO ACUTE RADIOGRAPHIC FINDING IN THE CHEST. Soft Tissue Neck CT 04/11/19 14:59 IMPRESSION: Postoperative findings of laryngectomy and neck dissection. There is a redemonstrated large left submandibular mass, although slightly decreased in size and bulk compared to prior examination is now overtly cavitary, measuring approximately 7.9 x 3.4 x 6.8 cm. Infection or abscess within a necrotic mass cannot be excluded. This may communicate to the oral cavity although an obvious communication is not visualized. Assessment and Plan - Diagnosis (1) SIRS (systemic inflammatory response syndrome) Is this a current diagnosis for this admission?: Yes Plan: Pancytopenia with ANC 700. Likely secondary to chemotherapy. Last chemotherapy 04/06/2019. 04/12/2019. SBP 189704, T-max 99.1, RR 2023, PO2 100% 6 L FiO2 28% trach collar. WBC 0.4, hemoglobin 8.3, platelet 62 sodium 132, potassium 3.4, bicarb 22, BUN 12, creatinine 0.5 magnesium 1.7. Lactic acid WNL. IV fluid resuscitation guided by volume status, empiric IV antibiotics, blood and sputum culture, neutropenic precautions. Antibiotics day 2. Cefepime day 2. Vancomycin day 2. Acyclovir day 2 Diflucan day 1. Cultures no growth so far. (2) Pancytopenia Is this a current diagnosis for this admission?: Yes Plan: Likely due to recent chemotherapy. Last chemotherapy 04/06/2019. Low-grade fever. Neutropenic precautions. Empiric antibiotics. Panculture. Follow-up cultures. (3) Hx of laryngectomy Is this a current diagnosis for this admission?: Yes Plan: Status post laryngectomy due to metastatic esophageal cancer. Tracheostomy in place. (4) History of esophageal cancer Is this a current diagnosis for this admission?: Yes Plan: History of esophageal cancer metastasized to larynx and left mandible. Sees Dr. Redmond oncologist at [facility]. (5) Elevated liver enzymes Is this a current diagnosis for this admission?: Yes Plan: T bili 1.9, direct bili 0.9 Most likely due to chemotherapy. Review of records from previous hospitalization shows elevated T bili the previous admission. Denies any history of hepatitis, alcoholism, or ingestion of any other hepatotoxic meds. Monitor LFTs. (6) Depression Qualifiers: Depression Type: major depressive disorder Is this a current diagnosis for this admission?: Yes Plan: When patient asked if he is decreased he says yes. Denies any suicidal or homicidal ideation. Does not want to be started on any medications and does not want psych to be consulted. Continue supportive measures.
--- NOTE | 2019-04-13 16:57 | PDOC PROGRESS REPORT ---
Subjective Progress Note for:: 04/13/19 Subjective:: RANDY JENNINGS is a 58 year old male past medical history of hypertension, esophageal cancer metastasized to his larynx, status post laryngectomy June 2018, recurrent to his left jaw currently receiving chemotherapy. Last chemotherapy last . During chemotherapy patient was found to be hypotensive, dizzy, was given magnesium and IV fluids and was sent home on doxycycline for his left scalp redness. Patient was doing fine until Thursday when he started feeling weak, dizzy, and low p.o. intake. On Thursday he continued feeling weak, dizzy and seeing spots. In ED he was found to be hypotensive, pancytopenia, ANC 700. He was started on IV fluids and a CT of the neck was done with the following Postoperative findings of laryngectomy and neck dissection. There is a redemonstrated large left mandibular mass, although slightly decreased in size a nd bulk compared to prior examination, is not overtly cavitary, measuring approximately 7.9 x 3.4 x 6.8 cm. Infection or abscess with a necrotic mass cannot be excluded. Patient is left jaw swelling, pain, erythema and dizziness, weakness, seeing spots, nausea, low p.o. intake and chills. Denies any shortness of breath, chest pain, cough, vomiting, abdominal pain, diarrhea, dysuria, hematuria, urgency or hesitancy. No acute events overnight. 04/13/2019: No acute events overnight, still has diarrhea, abdominal pain, very frustrated with what his situation, denies any shortness of breath, fever, chills, urinary symptoms, tolerating p.o. intake. When asked about CODE STATUS he still wants to be full code. SBP 048582, T-max 99.1, pulse 80s, RR 1820, SPO2 95% 6 L trach collar, FiO2 28%. WBC 0.4, hemoglobin 8.0, platelets 62 sodium 132.7, potassium 2.9, bicarb 22, BUN 11, creatinine 0.5, calcium 7.7, magnesium 1.5. Reason For Visit: SIRS Physical Exam Vital Signs: Temp Pulse Resp BP Pulse Ox 99.1 F 81 18 137/75 H 95 04/13/19 03:26 04/13/19 12:38 04/13/19 12:38 04/13/19 03:26 04/13/19 12:38 Intake & Output 04/12/19 04/13/19 04/14/19 06:59 06:59 06:59 Intake Total 3250 2450 1150 Output Total 600 0 Balance 2650 2450 1150 Weight 79.9 kg 79.3 kg General appearance: PRESENT: mild distress Head exam: PRESENT: atraumatic, normocephalic Neck exam: PRESENT: other - Erythema and tenderness over left mandible. Improving compared to admission.. ABSENT: carotid bruit, JVD, lymphadenopathy, thyromegaly Respiratory exam: PRESENT: clear to auscultation damian, other - Tracheostomy site improving compared to yesterday. No sign of bleeding.. ABSENT: rales, rhonchi, wheezes Cardiovascular exam: PRESENT: RRR. ABSENT: diastolic murmur, rubs, systolic murmur GI/Abdominal exam: PRESENT: normal bowel sounds, soft. ABSENT: distended, guarding, mass, organolmegaly, rebound, tenderness Extremities exam: PRESENT: full ROM. ABSENT: calf tenderness, clubbing, pedal edema Neurological exam: PRESENT: alert, awake, oriented to person, oriented to place, oriented to time, oriented to situation, CN II-XII grossly intact. ABSENT: motor sensory deficit Results Laboratory Results: 04/13/19 05:54 04/13/19 05:54 04/13/19 04/13/19 04/13/19 05:54 05:54 05:54 WBC 0.4 L* Cancelled RBC 2.48 L Cancelled Hgb 8.0 L Cancelled Hct 22.7 L Cancelled MCV 92 Cancelled MCH 32.3 Cancelled MCHC 35.3 Cancelled RDW 12.1 Cancelled Plt Count 62 L Cancelled Seg Neutrophils % Not Reportable Cancelled Lymphocytes % Not Reportable Cancelled Monocytes % Not Reportable Cancelled Eosinophils % Not Reportable Cancelled Basophils % Not Reportable Cancelled Absolute Neutrophils Not Reportable Cancelled Absolute Lymphocytes Not Reportable Cancelled Absolute Monocytes Not Reportable Cancelled Absolute Eosinophils Not Reportable Cancelled Absolute Basophils Not Reportable Cancelled Sodium 132.7 L Potassium 2.9 L* Chloride 102 Carbon Dioxide 22 Anion Gap 9 BUN 11 Creatinine 0.45 L Est GFR ( Amer) > 60 Est GFR (Non-Af Amer) > 60 Glucose 126 H Calcium 7.7 L Phosphorus Magnesium 1.5 L 04/13/19 05:54 WBC RBC Hgb Hct MCV MCH MCHC RDW Plt Count Seg Neutrophils % Lymphocytes % Monocytes % Eosinophils % Basophils % Absolute Neutrophils Absolute Lymphocytes Absolute Monocytes Absolute Eosinophils Absolute Basophils Sodium Potassium Chloride Carbon Dioxide Anion Gap BUN Creatinine Est GFR ( Amer) Est GFR (Non-Af Amer) Glucose Calcium Phosphorus 2.4 L Magnesium 04/11/19 15:35 Clean Catch Midstream Urine Culture - Final NO GROWTH 2 DAYS Impressions: Chest X-Ray 04/11/19 12:44 IMPRESSION: NO ACUTE RADIOGRAPHIC FINDING IN THE CHEST. Soft Tissue Neck CT 04/11/19 14:59 IMPRESSION: Postoperative findings of laryngectomy and neck dissection. There is a redemonstrated large left submandibular mass, although slightly decreased in size and bulk compared to prior examination is now overtly cavitary, measuring approximately 7.9 x 3.4 x 6.8 cm. Infection or abscess within a necrotic mass cannot be excluded. This may communicate to the oral cavity although an obvious communication is not visualized. Assessment and Plan - Diagnosis (1) SIRS (systemic inflammatory response syndrome) Is this a current diagnosis for this admission?: Yes Plan: Pancytopenia with ANC 700. Likely secondary to chemotherapy. Last chemotherapy 04/06/2019. 04/13/2019. SBP 689598, T-max 99.1, pulse 80s, RR 1820, SPO2 95% 6 L TC, FiO2 28%. WBC 0.4, hemoglobin 8.0, platelets 62 sodium 132.7, potassium 2.9, bicarb 22, BUN 11, creatinine 0.5, calcium 7.7, magnesium 1.5. 04/12/2019. SBP 588173, T-max 99.1, RR 2023, PO2 100% 6 L FiO2 28% trach collar. WBC 0.4, hemoglobin 8.3, platelet 62 sodium 132, potassium 3.4, bicarb 22, BUN 12, creatinine 0.5 magnesium 1.7. Lactic acid WNL. IV fluid resuscitation guided by volume status, empiric IV antibiotics, blood and sputum culture, neutropenic precautions. Antibiotics day 3. Cefepime day 3. Vancomycin day 3. Acyclovir day 3 Diflucan day 2. Cultures no growth so far. (2) Pancytopenia Is this a current diagnosis for this admission?: Yes Plan: Likely due to recent chemotherapy. Last chemotherapy 04/06/2019. Low-grade fever. Neutropenic precautions. Empiric antibiotics. Panculture. Follow-up cultures. (3) Hx of laryngectomy Is this a current diagnosis for this admission?: Yes Plan: Status post laryngectomy due to metastatic esophageal cancer. Tracheostomy in place. (4) History of esophageal cancer Is this a current diagnosis for this admission?: Yes Plan: History of esophageal cancer metastasized to larynx and left mandible. Sees Dr. Redmond oncologist at [place]. (5) Elevated liver enzymes Is this a current diagnosis for this admission?: Yes Plan: T bili 1.9, direct bili 0.9 on admission. Most likely due to chemotherapy. Review of records from previous hospitalization shows elevated T bili the previous admission. Denies any history of hepatitis, alcoholism, or ingestion of any other hepatotoxic meds. Monitor LFTs. (6) Depression Qualifiers: Depression Type: major depressive disorder Is this a current diagnosis for this admission?: Yes Plan: When patient asked if he is decreased he says yes. Denies any suicidal or homicidal ideation. Does not want to be started on any medications and does not want psych to be consulted. Continue supportive measures. (7) Diarrhea Qualifiers: Diarrhea type: unspecified type Qualified Code(s): R19.7 - Diarrhea, unspecified Is this a current diagnosis for this admission?: Yes Plan: Most likely due to recent chemotherapy. Last chemotherapy 04/06/2019. C. difficile negative. Continue monitoring volume status, monitor electrolytes and replace as needed, will start on PRN antidiarrheals. (8) Hypokalemia Is this a current diagnosis for this admission?: Yes Plan: Due to GI losses. Replace as needed. BMP tomorrow. (9) Hypomagnesemia Is this a current diagnosis for this admission?: Yes Plan: Likely due to GI losses. Replace as needed. Magnesium level tomorrow.
[2019-04-13] MEDS ORDERED: PROCHLORPERAZINE MALEATE 10 MG TABLET PO PRN (16:59)
[2019-04-13] MEDS ORDERED: DIPHEN PO SCH (18:00)
[2019-04-13] MEDS ORDERED: NYSTATIN PO SCH (18:00)
[2019-04-13] MEDS ORDERED: DEXAMETH PO SCH (18:00)
[2019-04-13] MEDS: LOPERAMIDE HCL 2 MG CAPSULE PO PRN (18:07)
[2019-04-13] MEDS: SUCRALFATE 1 GM TABLET PO SCH (21:14)
[2019-04-13] MEDS: NYSTATIN/DEXAMETH/DIPHEN SUSP 120 ML PO SCH (21:14)
[2019-04-13] MEDS: VANCOMYCIN HCL 1,250 MG in DEXTROSE 5%-WATER 250 ML IV SCH (21:19)
[2019-04-14] MEDS: ACETAMINOPHEN 325 MG TABLET PO PRN (04:38)
[2019-04-14] MEDS: VANCOMYCIN HCL 1,250 MG in DEXTROSE 5%-WATER 250 ML IV SCH ×3 (05:03→21:45)
[2019-04-14] MEDS: LEVOTHYROXINE SODIUM 0.1 MG TABLET PO SCH (05:04)
[2019-04-14 05:30] LABS: HEMATOCRIT 23.7 % (37.9-51.0); HEMOGLOBIN 8.4 g/dL (13.5-17.0); MEAN CORPUSCULAR HEMOGLOBIN 32.4 pg (27.0-33.4); MEAN CORPUSCULAR HGB CONC 35.5 g/dL (32.0-36.0); MEAN CORPUSCULAR VOLUME 91 fl (80-97); RED CELL DISTRIBUTION WIDTH 11.8 % (11.5-14.0)
[2019-04-14 05:45] LABS: WHITE BLOOD COUNT 0.5 10^3/uL (4.0-10.5)
[2019-04-14 05:46] LABS: PLATELET COUNT 67 10^3/uL (150-450)
[2019-04-14 05:48] LABS: ANION GAP 7 (5-19); BLOOD UREA NITROGEN 7 mg/dL (7-20); CALCIUM 7.8 mg/dL (8.4-10.2); CARBON DIOXIDE 24 mmol/L (22-30); CHLORIDE 102 mmol/L (98-107); GLUCOSE 102 mg/dL (75-110); POTASSIUM 3.1 mmol/L (3.6-5.0); SODIUM 133.1 mmol/L (137-145)
[2019-04-14] MEDS: POTASSI CL 40 MEQ/NS 1L 1,000 ML IV PRN (08:05)
[2019-04-14] MEDS: SUCRALFATE 1 GM TABLET PO SCH ×4 (08:05→21:02)
[2019-04-14] MEDS: LOPERAMIDE HCL 2 MG CAPSULE PO PRN ×2 (08:05→21:06)
[2019-04-14] MEDS: MORPHINE SULFATE 10 MG/ML INJ IV PRN ×3 (08:24→17:54)
[2019-04-14] MEDS ORDERED: POTASSI CL 20 MEQ/50 ML RIDER 20 MEQ/50 ML RTUPB IV ONE (09:00)
[2019-04-14] MEDS: DOCUSATE SODIUM 100 MG CAPSULE PO SCH (10:20)
[2019-04-14] MEDS: MAGNESIUM OXIDE 400 MG TABLET PO SCH ×2 (10:22→17:55)
[2019-04-14] MEDS: CEFEPIME 1 GM/D5W RTU 1 GM/50 ML RTUPB IV SCH ×2 (10:22→21:03)
[2019-04-14] MEDS: ACYCLOVIR 800 MG TABLET PO SCH ×2 (10:22→17:55)
[2019-04-14] MEDS: FAMOTIDINE 20 MG TABLET PO SCH ×2 (10:22→21:02)
[2019-04-14] MEDS: NYSTATIN/DEXAMETH/DIPHEN SUSP 120 ML PO SCH ×4 (10:23→21:04)
--- NOTE | 2019-04-14 11:36 | PDOC PROGRESS REPORT ---
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 Last chemotherapy last . During chemotherapy patient was found to be hypotensive, dizzy, was given magnesium and IV fluids and was sent home on doxycycline for his left scalp redness. Patient was doing fine until Thursday when he started feeling weak, dizzy, and low p.o. intake. On Thursday he continued feeling weak, dizzy and seeing spots. In ED he was found to be hypotensive, pancytopenia, ANC 700. He was started on IV fluids and a CT of the neck was done with the following Postoperative findings of laryngectomy and neck dissection. There is a redemonstrated large left mandibular mass, although slightly decreased in size a nd bulk compared to prior examination, is not overtly cavitary, measuring approximately 7.9 x 3.4 x 6.8 cm. Infection or abscess with a necrotic mass cannot be excluded. Patient is left jaw swelling, pain, erythema and dizziness, weakness, seeing spots, nausea, low p.o. intake and chills. Denies any shortness of breath, chest pain, cough, vomiting, abdominal pain, diarrhea, dysuria, hematuria, urgency or hesitancy. No acute events overnight. 04/13/2019: No acute events overnight, still has diarrhea, abdominal pain, very frustrated with what his situation, denies any shortness of breath, fever, chills, urinary symptoms, tolerating p.o. intake. When asked about CODE STATUS he still wants to be full code. SBP 816369, T-max 99.1, pulse 80s, RR 1820, SPO2 95% 6 L trach collar, FiO2 28%. WBC 0.4, hemoglobin 8.0, platelets 62 sodium 132.7, potassium 2.9, bicarb 22, BUN 11, creatinine 0.5, calcium 7.7, magnesium 1.5. 04/14/2019. No acute events overnight, patient still having diarrhea, abdominal pain, feeling better than yesterday, denies any fever, chills, nausea, vomiting, chest pain, shortness of breath. SBP 260385, T-max 101.5, pulse 70s, RR 1820, FiO2 100% TC. WBC 0.5, hemoglobin 8.4, platelets 67, sodium 133, potassium 3.1, BUN 7, creatinine 0.4, 81.6. Reason For Visit: SIRS Physical Exam Vital Signs: Temp Pulse Resp BP Pulse Ox 98.7 F 72 18 136/71 H 100 04/14/19 08:16 04/14/19 08:16 04/14/19 08:16 04/14/19 08:16 04/14/19 08:16 Intake & Output 04/13/19 04/14/19 04/15/19 06:59 06:59 06:59 Intake Total 2450 3760 400 Output Total 0 301 Balance 2450 3459 400 Weight 79.3 kg 83 kg General appearance: PRESENT: mild distress Head exam: PRESENT: atraumatic, normocephalic Respiratory exam: PRESENT: clear to auscultation damian, other - Tracheostomy mild erythema, no discharge, improving.. ABSENT: rales, rhonchi, wheezes Cardiovascular exam: PRESENT: RRR. ABSENT: diastolic murmur, rubs, systolic murmur GI/Abdominal exam: PRESENT: normal bowel sounds, soft. ABSENT: distended, guarding, mass, organolmegaly, rebound, tenderness Neurological exam: PRESENT: alert, awake, oriented to person, oriented to place, oriented to time, oriented to situation, CN II-XII grossly intact. ABSENT: motor sensory deficit Results Laboratory Results: 04/14/19 04:53 04/14/19 04:53 04/13/19 04/14/19 04/14/19 05:54 04:53 04:53 WBC 0.4 L* 0.5 L* RBC 2.48 L 2.60 L Hgb 8.0 L 8.4 L Hct 22.7 L 23.7 L MCV 92 91 MCH 32.3 32.4 MCHC 35.3 35.5 RDW 12.1 11.8 Plt Count 62 L 67 L Sodium 133.1 L Potassium 3.1 L Chloride 102 Carbon Dioxide 24 Anion Gap 7 BUN 7 Creatinine 0.44 L Est GFR ( Amer) > 60 Est GFR (Non-Af Amer) > 60 Glucose 102 Calcium 7.8 L Magnesium 1.6 04/11/19 15:35 Clean Catch Midstream Urine Culture - Final NO GROWTH 2 DAYS Impressions: Chest X-Ray 04/11/19 12:44 IMPRESSION: NO ACUTE RADIOGRAPHIC FINDING IN THE CHEST. Soft Tissue Neck CT 04/11/19 14:59 IMPRESSION: Postoperative findings of laryngectomy and neck dissection. There is a redemonstrated large left submandibular mass, although slightly decreased in size and bulk compared to prior examination is now overtly cavitary, measuring approximately 7.9 x 3.4 x 6.8 cm. Infection or abscess within a necrotic mass cannot be excluded. This may communicate to the oral cavity although an obvious communication is not visualized. Assessment and Plan - Diagnosis (1) SIRS (systemic inflammatory response syndrome) Is this a current diagnosis for this admission?: Yes Plan: Pancytopenia with ANC 700. Likely secondary to chemotherapy. Last chemotherapy 04/06/2019. 04/14/2019. SBP 982334, T-max 101.5, pulse 70s, RR 1820, FiO2 100% TC. WBC 0.5, hemoglobin 8.4, platelets 67 sodium 133, potassium 3.1, BUN 7, creatinine 0.4, 81.6. 04/13/2019. SBP 619855, T-max 99.1, pulse 80s, RR 1820, SPO2 95% 6 L TC, FiO2 28%. WBC 0.4, hemoglobin 8.0, platelets 62 sodium 132.7, potassium 2.9, bicarb 22, BUN 11, creatinine 0.5, calcium 7.7, magnesium 1.5. 04/12/2019. SBP 302383, T-max 99.1, RR 2023, PO2 100% 6 L FiO2 28% trach collar. WBC 0.4, hemoglobin 8.3, platelet 62 sodium 132, potassium 3.4, bicarb 22, BUN 12, creatinine 0.5 magnesium 1.7. Lactic acid WNL. Continue IV fluid resuscitation guided by volume status, empiric IV antibiotics, blood and sputum culture, neutropenic precautions. Antibiotics day 4. Cefepime day 4. Vancomycin day 4. Acyclovir day 4 Diflucan day 3. Cultures no growth so far. (2) Neutropenic fever Is this a current diagnosis for this admission?: Yes Plan: On neutropenic precautions. Panculture. Follow-up cultures. CBC tomorrow. Antibiotics day 4. Cefepime day 4. Vancomycin day 4. Acyclovir day 4 Diflucan day 3. (3) Pancytopenia Is this a current diagnosis for this admission?: Yes Plan: Likely due to recent chemotherapy. Last chemotherapy 04/06/2019. Low-grade fever. Neutropenic precautions. Empiric antibiotics. Panculture. Follow-up cultures. (4) Hx of laryngectomy Is this a current diagnosis for this admission?: Yes Plan: Status post laryngectomy due to metastatic esophageal cancer. Tracheostomy in place. (5) History of esophageal cancer Is this a current diagnosis for this admission?: Yes Plan: History of esophageal cancer metastasized to larynx and left mandible. Sees Dr. Redmond oncologist at [place]. (6) Elevated liver enzymes Is this a current diagnosis for this admission?: Yes Plan: T bili 1.9, direct bili 0.9 on admission. Most likely due to chemotherapy. Review of records from previous hospitalization shows elevated T bili the previous admission. Denies any history of hepatitis, alcoholism, or ingestion of any other hepatotoxic meds. Monitor LFTs. (7) Depression Qualifiers: Depression Type: major depressive disorder Is this a current diagnosis for this admission?: Yes Plan: When patient asked if he is decreased he says yes. Denies any suicidal or homicidal ideation. Does not want to be started on any medications and does not want psych to be consulted. Continue supportive measures. (8) Diarrhea Qualifiers: Diarrhea type: unspecified type Qualified Code(s): R19.7 - Diarrhea, unspecified Is this a current diagnosis for this admission?: Yes Plan: Most likely due to recent chemotherapy. Last chemotherapy 04/06/2019. C. difficile negative. Continue monitoring volume status, monitor electrolytes and replace as needed, will start on PRN antidiarrheals. (9) Hypokalemia Is this a current diagnosis for this admission?: Yes Plan: Due to GI losses. Replace as needed. BMP tomorrow. (10) Hypomagnesemia Is this a current diagnosis for this admission?: Yes Plan: Likely due to GI losses. Replace as needed. Magnesium level tomorrow.
[2019-04-15] MEDS: ACETAMINOPHEN 325 MG TABLET PO PRN (00:54)
[2019-04-15] MEDS: POTASSI CL 40 MEQ/NS 1L 1,000 ML IV PRN ×2 (00:54→19:59)
[2019-04-15] MEDS: VANCOMYCIN HCL 1,250 MG in DEXTROSE 5%-WATER 250 ML IV SCH ×3 (05:04→21:28)
[2019-04-15] MEDS: LEVOTHYROXINE SODIUM 0.1 MG TABLET PO SCH (05:05)
[2019-04-15 07:31] LABS: HEMATOCRIT 22.8 % (37.9-51.0); HEMOGLOBIN 8.2 g/dL (13.5-17.0); MEAN CORPUSCULAR HEMOGLOBIN 33.1 pg (27.0-33.4); MEAN CORPUSCULAR VOLUME 92 fl (80-97); RED BLOOD COUNT 2.49 10^6/uL (4.35-5.55); RED CELL DISTRIBUTION WIDTH 11.9 % (11.5-14.0)
[2019-04-15 07:50] LABS: PLATELET COUNT 80 10^3/uL (150-450)
[2019-04-15 07:55] LABS: ABSOLUTE LYMPHOCYTES# (MANUAL) 0.3 10^3/uL (0.5-4.7); ABSOLUTE MONOCYTES # (MANUAL) 0.4 10^3/uL (0.1-1.4); BASOPHILS % (MANUAL) 0 % (0-2); EOSINOPHILS % (MANUAL) 0 % (0-6); LYMPHOCYTES % (MANUAL) 20 % (13-45); MONOCYTES % (MANUAL) 34 % (3-13); SEGMENTED NEUTROPHILS % (MAN) 46 % (42-78); TOTAL CELLS COUNTED 50
[2019-04-15 08:00] LABS: PLATELET COMMENT DECREASED
[2019-04-15 08:01] LABS: WHITE BLOOD COUNT 1.3 10^3/uL (4.0-10.5)
[2019-04-15 08:03] LABS: VANCOMYCIN,TROUGH 31.1 ug/mL (5.0-20.0)
[2019-04-15 08:04] LABS: ALANINE AMINOTRANSFERASE 37 U/L (21-72); ALBUMIN 2.2 g/dL (3.5-5.0); ALKALINE PHOSPHATASE 52 U/L (38-126); ANION GAP 5 (5-19); ASPARTATE AMINO TRANSFERASE 23 U/L (17-59); BILIRUBIN,DIRECT 0.4 mg/dL (0.0-0.4); BLOOD UREA NITROGEN 7 mg/dL (7-20); CALCIUM 7.8 mg/dL (8.4-10.2); CARBON DIOXIDE 27 mmol/L (22-30); CHLORIDE 102 mmol/L (98-107); GLUCOSE 104 mg/dL (75-110); SODIUM 134.3 mmol/L (137-145); TOTAL PROTEIN 4.3 g/dL (6.3-8.2)
[2019-04-15] MEDS: LOPERAMIDE HCL 2 MG CAPSULE PO PRN (09:03)
[2019-04-15] MEDS: DOCUSATE SODIUM 100 MG CAPSULE PO SCH (09:04)
[2019-04-15] MEDS: SUCRALFATE 1 GM TABLET PO SCH ×4 (09:04→21:18)
[2019-04-15] MEDS: MAGNESIUM OXIDE 400 MG TABLET PO SCH ×2 (10:17→17:26)
[2019-04-15] MEDS: NYSTATIN/DEXAMETH/DIPHEN SUSP 120 ML PO SCH ×4 (10:17→21:16)
[2019-04-15] MEDS: CEFEPIME 1 GM/D5W RTU 1 GM/50 ML RTUPB IV SCH ×2 (10:17→21:18)
[2019-04-15] MEDS: FAMOTIDINE 20 MG TABLET PO SCH ×2 (10:17→21:18)
[2019-04-15] MEDS: ACYCLOVIR 800 MG TABLET PO SCH ×2 (10:17→17:26)
--- NOTE | 2019-04-15 12:39 | PDOC PROGRESS REPORT ---
Subjective Progress Note for:: 04/15/19 Subjective:: Spoke with patient at bedside along with nursing. Patient is sitting in the bed comfortably and quiet. He does not really speak because he has his trach and cannot verbalize but does write things out on a piece of notepad. He currently does not have really any pain. But does say that his facial and neck area does hurt-admits that this is a chronic pain. I discussed about his neutropenia and that his white count is improving on antibiotics. He continues to be on neutropenic precaution. He denies any chest pain, shortness of breath, abdominal pain, nausea vomiting or dizziness. Reason For Visit: SIRS Physical Exam Vital Signs: Temp Pulse Resp BP Pulse Ox 97.5 F 88 14 123/70 98 04/15/19 08:02 04/15/19 09:05 04/15/19 09:05 04/15/19 08:02 04/15/19 09:05 Intake & Output 04/14/19 04/15/19 04/16/19 06:59 06:59 06:59 Intake Total 3760 2940 Output Total 301 700 Balance 3459 2240 Weight 182 lb 15.739 oz 182 lb 8.684 oz General appearance: PRESENT: no acute distress Head exam: PRESENT: atraumatic, normocephalic Eye exam: PRESENT: EOMI. ABSENT: scleral icterus Mouth exam: PRESENT: moist Neck exam: PRESENT: tracheostomy - Stoma noted with dried blood around Respiratory exam: PRESENT: clear to auscultation damian, symmetrical Cardiovascular exam: PRESENT: +S1, +S2 Pulses: PRESENT: +2 pedal pulses bilateral GI/Abdominal exam: PRESENT: normal bowel sounds, soft. ABSENT: tenderness Extremities exam: ABSENT: +2 edema Neurological exam: PRESENT: alert, awake, oriented to situation, CN II-XII grossly intact Skin exam: PRESENT: dry, warm Results Laboratory Results: 04/15/19 07:13 04/15/19 07:13 04/14/19 04/15/19 04/15/19 13:50 07:13 07:13 WBC 1.3 L* RBC 2.49 L Hgb 8.2 L Hct 22.8 L MCV 92 MCH 33.1 MCHC 36.0 RDW 11.9 Plt Count 80 L Seg Neutrophils % Not Reportable Lymphocytes % Not Reportable Monocytes % Not Reportable Eosinophils % Not Reportable Basophils % Not Reportable Absolute Neutrophils Not Reportable Absolute Lymphocytes Not Reportable Absolute Monocytes Not Reportable Absolute Eosinophils Not Reportable Absolute Basophils Not Reportable Sodium 134.3 L Potassium 3.0 L* Chloride 102 Carbon Dioxide 27 Anion Gap 5 BUN 7 Creatinine 0.51 L Est GFR ( Amer) > 60 Est GFR (Non-Af Amer) > 60 Glucose 104 Calcium 7.8 L Magnesium 1.6 Total Bilirubin 1.0 AST 23 ALT 37 Alkaline Phosphatase 52 Total Protein 4.3 L Albumin 2.2 L Stool for White Cells RARE H 04/15/19 07:13 WBC RBC Hgb Hct MCV MCH MCHC RDW Plt Count Seg Neutrophils % Lymphocytes % Monocytes % Eosinophils % Basophils % Absolute Neutrophils Absolute Lymphocytes Absolute Monocytes Absolute Eosinophils Absolute Basophils Sodium Potassium Chloride Carbon Dioxide Anion Gap BUN Creatinine 0.52 Est GFR ( Amer) > 60 Est GFR (Non-Af Amer) > 60 Glucose Calcium Magnesium Total Bilirubin AST ALT Alkaline Phosphatase Total Protein Albumin Stool for White Cells Impressions: Chest X-Ray 04/11/19 12:44 IMPRESSION: NO ACUTE RADIOGRAPHIC FINDING IN THE CHEST. Soft Tissue Neck CT 04/11/19 14:59 IMPRESSION: Postoperative findings of laryngectomy and neck dissection. There is a redemonstrated large left submandibular mass, although slightly decreased in size and bulk compared to prior examination is now overtly cavitary, measuring approximately 7.9 x 3.4 x 6.8 cm. Infection or abscess within a necrotic mass cannot be excluded. This may communicate to the oral cavity although an obvious communication is not visualized. Assessment and Plan - Diagnosis (1) Elevated liver enzymes Is this a current diagnosis for this admission?: Yes (2) History of esophageal cancer Is this a current diagnosis for this admission?: Yes (3) Hx of laryngectomy Is this a current diagnosis for this admission?: Yes (4) Hypokalemia Is this a current diagnosis for this admission?: Yes (5) Neutropenic fever Is this a current diagnosis for this admission?: Yes (6) SIRS (systemic inflammatory response syndrome) Is this a current diagnosis for this admission?: Yes (7) Diarrhea Qualifiers: Diarrhea type: unspecified type Qualified Code(s): R19.7 - Diarrhea, unspecified Is this a current diagnosis for this admission?: Yes - Plan Summary Plan Summary: Sirs-ANC is not improving yet. White count has improve somewhat to 1.3. We will continue with neutropenic precautions and IV antibiotics with cefepime and vancomycin. He is also been started on acyclovir and Diflucan at this time. We will continue with antibiotics, day 5. He is remains afebrile. Continue to monitor for signs of infection. So far his cultures have remained negative which is a good sign. I am hoping that his ANC will start to improve in the next few days. History of cancer-laryngeal and esophageal-most recent chemo on 04/07. He does have a tracheostomy but it does have dried blood in the surrounding area and they have suctioned out clots of blood in the last few days. Elevated LFTs- He had a conversation previous hospitalist and it was told that this is something chronic and not acute. Is not complaining of any abdominal pain. Hypokalemia-start with aggressive repletion-we will start him on potassium 40 M EQ twice daily. He stays on IV saline along with potassium in it. This is likely secondary to his diarrhea. Diarrhea-so far C. difficile negative and I have asked nursing to send out for further cultures. This likely could be secondary to use of chemo.
[2019-04-15] MEDS: POTASSIUM CHLORIDE 10 MEQ CAPSULE.ER PO SCH ×2 (13:57→21:18)
[2019-04-15 14:21] LABS: VANCOMYCIN,TROUGH 14.6 ug/mL (5.0-20.0)
[2019-04-15 16:42] LABS: ANION GAP 6 (5-19); BLOOD UREA NITROGEN 8 mg/dL (7-20); CALCIUM 7.7 mg/dL (8.4-10.2); CARBON DIOXIDE 27 mmol/L (22-30); CHLORIDE 100 mmol/L (98-107); GLUCOSE 113 mg/dL (75-110); SODIUM 133.4 mmol/L (137-145)
[2019-04-15] MEDS: LACTOBACILLUS ACIDOPHILUS 250 MG TAB PO SCH (18:39)
[2019-04-16] MEDS: LOPERAMIDE HCL 2 MG CAPSULE PO PRN ×2 (03:18→11:00)
[2019-04-16] MEDS: VANCOMYCIN HCL 1,250 MG in DEXTROSE 5%-WATER 250 ML IV SCH ×3 (06:03→22:14)
[2019-04-16] MEDS: LEVOTHYROXINE SODIUM 0.1 MG TABLET PO SCH (06:03)
[2019-04-16 06:17] LABS: ANION GAP 5 (5-19); BLOOD UREA NITROGEN 6 mg/dL (7-20); CALCIUM 7.9 mg/dL (8.4-10.2); CARBON DIOXIDE 25 mmol/L (22-30); CHLORIDE 105 mmol/L (98-107); GLUCOSE 88 mg/dL (75-110); POTASSIUM 3.6 mmol/L (3.6-5.0)
[2019-04-16] MEDS: SUCRALFATE 1 GM TABLET PO SCH ×4 (08:11→22:14)
[2019-04-16 08:22] LABS: HEMATOCRIT 22.5 % (37.9-51.0); MEAN CORPUSCULAR HGB CONC 35.7 g/dL (32.0-36.0); MEAN CORPUSCULAR VOLUME 92 fl (80-97); RED BLOOD COUNT 2.44 10^6/uL (4.35-5.55); RED CELL DISTRIBUTION WIDTH 11.9 % (11.5-14.0); WHITE BLOOD COUNT 1.7 10^3/uL (4.0-10.5)
[2019-04-16 08:45] LABS: PLATELET COUNT 86 10^3/uL (150-450)
[2019-04-16 08:50] LABS: ABSOLUTE LYMPHOCYTES# (MANUAL) 0.4 10^3/uL (0.5-4.7); ABSOLUTE MONOCYTES # (MANUAL) 0.2 10^3/uL (0.1-1.4); BASOPHILS % (MANUAL) 0 % (0-2); EOSINOPHILS % (MANUAL) 0 % (0-6); LYMPHOCYTES % (MANUAL) 22 % (13-45); MONOCYTES % (MANUAL) 12 % (3-13); SEGMENTED NEUTROPHILS % (MAN) 66 % (42-78); TOTAL CELLS COUNTED 50
[2019-04-16 08:54] LABS: PLATELET COMMENT ADEQUATE; PLATELET LARGE PRESENT; RBC MORPHOLOGY COMMENT NORMO-CYTIC/CHROMIC
[2019-04-16] MEDS: DOCUSATE SODIUM 100 MG CAPSULE PO SCH (09:05)
[2019-04-16] MEDS: NYSTATIN/DEXAMETH/DIPHEN SUSP 120 ML PO SCH ×4 (09:25→22:14)
[2019-04-16] MEDS: LACTOBACILLUS ACIDOPHILUS 250 MG TAB PO SCH ×2 (09:25→17:12)
[2019-04-16] MEDS: POTASSIUM CHLORIDE 10 MEQ CAPSULE.ER PO SCH (09:25)
[2019-04-16] MEDS: FAMOTIDINE 20 MG TABLET PO SCH ×2 (09:25→22:14)
[2019-04-16] MEDS: ACYCLOVIR 800 MG TABLET PO SCH ×2 (09:25→17:12)
[2019-04-16] MEDS: MAGNESIUM OXIDE 400 MG TABLET PO SCH ×2 (09:25→17:12)
[2019-04-16] MEDS: CEFEPIME 1 GM/D5W RTU 1 GM/50 ML RTUPB IV SCH ×2 (09:26→22:14)
--- NOTE | 2019-04-16 13:01 | PDOC PROGRESS REPORT ---
Subjective Progress Note for:: 04/16/19 Subjective:: Spoke with patient at bedside. States he suctioned out more clots from his tracheal stoma. Otherwise he denies any chest pain, shortness of breath, abdominal pain, nausea or vomiting or dizziness. He wants to know when he can go home. I told him that he still having diarrhea, his potassium still low and his ANC number is still low. He is still neutropenic and it is a risk to discharge him. He agrees with me. Reason For Visit: SIRS Physical Exam Vital Signs: Temp Pulse Resp BP Pulse Ox 98.8 F 67 18 137/69 H 98 04/16/19 11:25 04/16/19 11:25 04/16/19 11:25 04/16/19 11:25 04/16/19 12:00 Intake & Output 04/15/19 04/16/19 04/17/19 06:59 06:59 06:59 Intake Total 2940 2891 565 Output Total 700 Balance 2240 2891 565 Weight 182 lb 8.684 oz 177 lb 11.081 oz General appearance: PRESENT: no acute distress Head exam: PRESENT: atraumatic, normocephalic Eye exam: PRESENT: EOMI. ABSENT: scleral icterus Ear exam: PRESENT: normal external ear exam Mouth exam: PRESENT: moist, tongue midline Neck exam: PRESENT: tracheostomy - Noted with no trach collar. Some dried blood noted inside. No obvious clots seen. Respiratory exam: PRESENT: clear to auscultation damian, symmetrical Cardiovascular exam: PRESENT: +S1, +S2 Pulses: ABSENT: +2 pedal pulses bilateral GI/Abdominal exam: PRESENT: normal bowel sounds, soft. ABSENT: tenderness Extremities exam: ABSENT: pedal edema Neurological exam: PRESENT: alert, awake, oriented to person, oriented to place, oriented to time, CN II-XII grossly intact Skin exam: PRESENT: dry, warm Results Laboratory Results: 04/16/19 05:51 04/16/19 05:51 04/15/19 04/16/19 04/16/19 16:07 05:51 05:51 WBC 1.7 L RBC 2.44 L Hgb 8.0 L Hct 22.5 L MCV 92 MCH 33.0 MCHC 35.7 RDW 11.9 Plt Count 86 L Seg Neutrophils % Not Reportable Lymphocytes % Not Reportable Monocytes % Not Reportable Eosinophils % Not Reportable Basophils % Not Reportable Absolute Neutrophils Not Reportable Absolute Lymphocytes Not Reportable Absolute Monocytes Not Reportable Absolute Eosinophils Not Reportable Absolute Basophils Not Reportable Sodium 133.4 L 135.0 L Potassium 3.0 L* 3.6 Chloride 100 105 Carbon Dioxide 27 25 Anion Gap 6 5 BUN 8 6 L Creatinine 0.49 L 0.48 L Est GFR ( Amer) > 60 > 60 Est GFR (Non-Af Amer) > 60 > 60 Glucose 113 H 88 Calcium 7.7 L 7.9 L Magnesium 1.7 Impressions: Chest X-Ray 04/11/19 12:44 IMPRESSION: NO ACUTE RADIOGRAPHIC FINDING IN THE CHEST. Soft Tissue Neck CT 04/11/19 14:59 IMPRESSION: Postoperative findings of laryngectomy and neck dissection. There is a redemonstrated large left submandibular mass, although slightly decreased in size and bulk compared to prior examination is now overtly cavitary, measuring approximately 7.9 x 3.4 x 6.8 cm. Infection or abscess within a necrotic mass cannot be excluded. This may communicate to the oral cavity although an obvious communication is not visualized. Assessment and Plan - Diagnosis (1) Elevated liver enzymes Is this a current diagnosis for this admission?: Yes (2) History of esophageal cancer Is this a current diagnosis for this admission?: Yes (3) Hx of laryngectomy Is this a current diagnosis for this admission?: Yes (4) Hypokalemia Is this a current diagnosis for this admission?: Yes (5) Neutropenic fever Is this a current diagnosis for this admission?: Yes (6) SIRS (systemic inflammatory response syndrome) Is this a current diagnosis for this admission?: Yes (7) Diarrhea Qualifiers: Diarrhea type: unspecified type Qualified Code(s): R19.7 - Diarrhea, unspecified Is this a current diagnosis for this admission?: Yes - Plan Summary Plan Summary: [id number] has increased overnight to greater than 1100 now. We will continue with cefepime and vancomycin for now, day 6. He is also on acyclovir and Diflucan-we will consider stopping these. So far all his cultures have been negative. Hoping he can be discharged home in 1 to 2 days. He wants to go home now but I have recommended to stay until he clears his infection. He remains afebrile History of cancer-laryngeal and esophageal-most recent chemo on 04/07. He does have a tracheostomy but it does have dried blood in the surrounding area and they have suctioned out clots of blood in the last few days. Elevated LFTs- He had a conversation previous hospitalist and it was told that this is something chronic and not acute. Is not complaining of any abdominal pain. Hypokalemia-seems to be improving and resolving-we will slow down his potassium supplements. Continue with IV fluids with potassium. This is likely secondary to his diarrhea. Diarrhea-so far C. difficile negative and we have sent for stool cultures. Continues to have diarrhea about 5 times or more a day. I have added probiotics to his regimen. He is also getting Imodium as needed. This likely could be secondary to use of chemo.
[2019-04-16] MEDS: POTASSI CL 40 MEQ/NS 1L 1,000 ML IV PRN (13:18)
[2019-04-17] MEDS: LEVOTHYROXINE SODIUM 0.1 MG TABLET PO SCH (05:08)
[2019-04-17] MEDS: VANCOMYCIN HCL 1,250 MG in DEXTROSE 5%-WATER 250 ML IV SCH (05:09)
[2019-04-17 05:47] LABS: ABSOLUTE LYMPHOCYTES (AUTO) 0.5 10^3/uL (0.5-4.7); ABSOLUTE MONOCYTES (AUTO) 0.3 10^3/uL (0.1-1.4); ABSOLUTE NEUT (AUTO) 1.4 10^3/uL (1.7-8.2); EOSINOPHILS % (AUTO) 0.5 % (0-6); HEMATOCRIT 22.8 % (37.9-51.0); HEMOGLOBIN 8.1 g/dL (13.5-17.0); LYMPHOCYTES % (AUTO) 21.2 % (13-45); MEAN CORPUSCULAR HEMOGLOBIN 32.7 pg (27.0-33.4); MEAN CORPUSCULAR HGB CONC 35.7 g/dL (32.0-36.0); MEAN CORPUSCULAR VOLUME 92 fl (80-97); MONOCYTES % (AUTO) 13.7 % (3-13); PLATELET COUNT 109 10^3/uL (150-450); RED BLOOD COUNT 2.49 10^6/uL (4.35-5.55); SEGMENTED NEUTROPHILS % (AUTO) 63.6 % (42-78); TOTAL CELLS COUNTED % (AUTO) 100 %; WHITE BLOOD COUNT 2.3 10^3/uL (4.0-10.5)
[2019-04-17 06:09] LABS: ANION GAP 6 (5-19); BLOOD UREA NITROGEN 4 mg/dL (7-20); CALCIUM 7.9 mg/dL (8.4-10.2); CARBON DIOXIDE 25 mmol/L (22-30); CHLORIDE 103 mmol/L (98-107); GLUCOSE 84 mg/dL (75-110); POTASSIUM 3.5 mmol/L (3.6-5.0); SODIUM 133.6 mmol/L (137-145)
[2019-04-17] MEDS ORDERED: POTASSIUM CHLORIDE 10 MEQ CAPSULE.ER PO SCH (07:49)
[2019-04-17 08:00] VITALS: BP 146/79
[2019-04-17] MEDS: SUCRALFATE 1 GM TABLET PO SCH (08:45)
[2019-04-17] MEDS ORDERED: POTASSIUM CHLORIDE 10 MEQ CAPSULE.ER PO ONE (10:00)
[2019-04-17] MEDS: DOCUSATE SODIUM 100 MG CAPSULE PO SCH (10:02)
== END 2019-04-17 10:50 | disposition left against medical advice (07) | DRG 809 ==
LOC: ER 12:22 → EH 18:33 → 3W 22:15
PROVIDERS: ADMIT Internal Medicine; ATTEND Internal Medicine
DX: D61.810 Antineoplastic chemotherapy induced pancytopenia (principal); C15.9 Malignant neoplasm of esophagus, unspecified; C79.51 Secondary malignant neoplasm of bone; E87.1 Hypo-osmolality and hyponatremia; K52.1 Toxic gastroenteritis and colitis; I10 Essential (primary) hypertension; K21.9 Gastro-esophageal reflux disease without esophagitis; Z93.0 Tracheostomy status; T45.1X5A Adverse effect of antineoplastic and immunosuppressive drugs, initial encounter; F32.9 Major depressive disorder, single episode, unspecified; E87.6 Hypokalemia; E83.42 Hypomagnesemia; Z53.21 Procedure and treatment not carried out due to patient leaving prior to being seen by health care provider
CPT/HCPCS: 36415; 70491; 71045; 80048; 80053; 80202; 81001; 82565; 82803; 82962; 83605; 83735; 84100; 85025; 85027; 85610; 87040; 87045; 87077; 87086; 87177; 87205; 87493; 89055; 93005; 93010; 96361; 96374; 96375; 99285; J0692; J1170; J2270; J2405; J3370; J3475; J3480; J3490; J7030; J7060; J7620

== ENCOUNTER 2019-06-20 21:11 | Emergency (ER) | payer MEDICARE ==
[2019-06-20] MEDS ORDERED: ONDANSETRON HCL INJ/PF 4 MG/2 ML SDV IV ONE (21:52)
[2019-06-20] MEDS ORDERED: NORMAL SALINE 1000 ML 1,000 ML IV ONE (21:52)
--- NOTE | 2019-06-20 21:55 | ER Document Report ---
ED GI/ - General Stated Complaint: VOMITING BLOOD Time Seen by Provider: 06/20/19 21:53 Primary Care Provider: RON WHITT MD [Primary Care Provider] - Follow up as needed Mode of Arrival: Stretcher Information source: Patient, Relative Cannot obtain history due to: Other - Nonverbal Notes: HISTORY OF PRESENT ILLNESS: Patient is a 58-year-old male with a past medical history of esophageal cancer status post laryngectomy currently on radiation therapy who presents with several episodes of coffee-ground emesis but also includes bright red blood. Patient denies any pain and denies past history of similar symptoms. He currently has a tracheostomy. Per report, the patient is able to drink liquids and consume soft solids which has not changed. He denies taking blood thinners. Location: Abdomen Onset: Sudden Alleviation: None Provocation: None Quality: Bleeding Radiation: None Severity: Moderate Timing: Intermittent History of abdominal surgery: None Associated symptoms: Denies fevers or chills, no cough or congestion, no weakness or ataxia Last bowel movement: Today and normal REVIEW OF SYSTEMS: CONSTITUTIONAL : Denies fever or chills, no sweats. Denies recent illness. EENT: Denies eye, ear, throat, or mouth pain or symptoms. Denies nasal or sinus congestion. CARDIOVASCULAR: Denies chest pain. Denies swelling of the legs. RESPIRATORY: Denies cough, cold, or chest congestion. Denies shortness of breath or difficulty breathing. Denies wheezing. GASTROINTESTINAL: Positive for nausea and hematemesis, negative for diarrhea. Denies constipation. GENITOURINARY: Denies difficulty urinating, painful urination, burning, frequency, or blood in urine. MUSCULOSKELETAL: Denies neck or back pain or joint pain or swelling. SKIN: Denies rash or skin lesions. HEMATOLOGIC : Denies easy bruising or bleeding. LYMPHATIC: Denies swollen, enlarged glands. NEUROLOGICAL: Denies altered mental status or loss of consciousness. Denies headache. Denies weakness or paralysis or loss of use of either side. Denies problems with gait or speech. Denies sensory or motor loss. PSYCHIATRIC: Denies anxiety or stress or depression. All other systems reviewed and negative. PHYSICAL EXAMINATION: GENERAL: Weak and pale-appearing, well-nourished and in no acute distress. HEAD: Atraumatic, normocephalic. No scalp deformity, depression, or crepitance. EYES: Pupils are 3 mm and equal/round/reactive to light, extraocular movements intact, sclera anicteric, conjunctiva are normal. ENT: Nares patent bilaterally, oropharynx. Moist mucous membranes. No tonsil hypertrophy. NECK: Tracheostomy present in the anterior neck. Normal range of motion, supple without lymphadenopathy. LUNGS: Breath sounds present, equal, and clear to auscultation bilaterally. No wheezes, rales, or rhonchi. HEART: Regular rate and rhythm without murmurs, rubs, or gallops. 2+ peripheral pulses. Normal capillary refill. ABDOMEN: Soft, nontender, nondistended. Normoactive bowel sounds. No guarding, no rebound. No masses appreciated. BACK: Normal contour, no midline tenderness. Rectal exam deferred. GENITAL/PELVIC: Deferred. EXTREMITIES: Normal range of motion, no pitting or edema. No cyanosis. NEUROLOGICAL: No focal neurological deficits. Moves all extremities spontaneously and on command. PSYCH: Normal mood, normal affect. No suicidal thoughts/ideations. No homicidal thoughts/ideations. No hallucinations. SKIN: Warm, dry, normal turgor, no rashes or lesions noted. ASSESSMENT AND PLAN: This patient is a 58-year-old male who presents with hematemesis and nausea. 1. Will obtain labs, urine, coagulation panel, and CT scan of the abdomen/ pelvis. 2. Will likely admit to the hospital. TRAVEL OUTSIDE OF THE [place] IN LAST 30 DAYS: No - HPI Patient complains to provider of: Vomiting Onset: Just prior to arrival Timing/Duration: Sudden Quality of pain: No pain Severity at maximum: Moderate Severity in ED: Mild Pain Level: Denies Location: Epigastric Associated symptoms: Blood in emesis Exacerbated by: Denies Relieved by: Denies Similar symptoms previously: No Recently seen / treated by doctor: Yes - Related Data Allergies/Adverse Reactions: Tetanus Vaccines and Toxoid Allergy (Verified 12/11/16 15:39) Past Medical History - General Information source: Patient, Relative - Social History Smoking Status: Never Smoker Chew tobacco use (# tins/day): No Frequency of alcohol use: None Drug Abuse: None Lives with: Family Family History: Reviewed & Not Pertinent Patient has suicidal ideation: No Patient has homicidal ideation: No - Past Medical History Cardiac Medical History: Reports: Hx Hypertension - Recently taken off medication Denies: Hx Coronary Artery Disease, Hx Heart Attack Pulmonary Medical History: Reports: Hx Pneumonia - "A long time ago and it damaged my lungs" 20+ years ago Denies: Hx Asthma, Hx Bronchitis, Hx COPD EENT Medical History: Reports: Other - History of laryngeal and esophageal cancer Neurological Medical History: Reports: None. Denies: Hx Cerebrovascular Accident, Hx Seizures Endocrine Medical History: Reports: None Renal/ Medical History: Reports: None. Denies: Hx Peritoneal Dialysis Malignancy Medical History: Reports Other - History of laryngeal and esophageal cancer GI Medical History: Reports: Hx Gastroesophageal Reflux Disease Musculoskeletal Medical History: Denies Hx Arthritis Skin Medical History: Reports None Psychiatric Medical History: Reports: None Traumatic Medical History: Reports: None Infectious Medical History: Reports: None Past Surgical History: Reports: Other - History of tracheostomy, history of laryngectomy - Immunizations Hx Diphtheria, Pertussis, Tetanus Vaccination: No - Patient allergic Review of Systems - Review of Systems Constitutional: No symptoms reported EENT: See HPI, Mouth pain, Mouth swelling Cardiovascular: No symptoms reported Respiratory: No symptoms reported Gastrointestinal: See HPI, Vomiting, Blood in vomit Genitourinary: No symptoms reported Male Genitourinary: No symptoms reported Musculoskeletal: No symptoms reported Skin: No symptoms reported Hematologic/Lymphatic: No symptoms reported Neurological/Psychological: No symptoms reported -: Yes All other systems reviewed and negative Physical Exam - Vital signs Vitals: Resp BP Pulse Ox 25 H 89/65 L 100 06/20/19 21:39 06/20/19 21:39 06/20/19 21:39 Interpretation: Normal - General General appearance: Appears well, Alert - HEENT Head: Normocephalic, Atraumatic Eyes: Normal Pupils: PERRL - Respiratory Respiratory status: No respiratory distress Chest status: Nontender Breath sounds: Normal Chest palpation: Normal - Cardiovascular Rhythm: Regular Heart sounds: Normal auscultation Murmur: No - Abdominal Inspection: Normal Distension: No distension Bowel sounds: Normal Tenderness: Nontender Organomegaly: No organomegaly - Back Back: Normal, Nontender - Extremities General upper extremity: Normal inspection, Nontender, Normal color, Normal ROM, Normal temperature General lower extremity: Normal inspection, Nontender, Normal color, Normal ROM, Normal temperature, Normal weight bearing. No: Juanjo's sign - Neurological Neuro grossly intact: Yes Cognition: Normal Orientation: AAOx4 Ashley Coma Scale Eye Opening: Spontaneous Ashley Coma Scale Verbal: Oriented Gary Coma Scale Motor: Obeys Commands Ashley Coma Scale Total: 15 Speech: Normal Motor strength normal: LUE, RUE, LLE, RLE Sensory: Normal - Psychological Associated symptoms: Normal affect, Normal mood - Skin Skin Temperature: Warm Skin Moisture: Dry Skin Color: Normal Course - Re-evaluation Re-evalutation: 06/21/19 03:00 Hemoglobin of 7.4 is down from the patient's baseline. Considering he was tachycardic and hypertensive upon arrival, he will be given 2 units of packed red blood cells. CT is unremarkable. Given there is no gastroenterology available tomorrow, patient has requested to be transferred to the facility that he gets all of his intensive care. He will be transferred to [facility]. - Vital Signs Vital signs: Temp Pulse Resp BP Pulse Ox 98.2 F 88 20 100/64 100 06/21/19 00:39 06/21/19 00:39 06/21/19 01:01 06/21/19 01:01 06/21/19 00:55 - Laboratory Result Diagrams: 06/20/19 21:43 06/20/19 21:43 Laboratory results interpreted by me: 06/20/19 06/20/19 06/20/19 21:43 21:43 21:43 WBC 12.5 H RBC 2.28 L Hgb 7.4 L Hct 21.8 L Absolute Neuts (auto) 10.1 H Seg Neutrophils % 80.9 H PT 16.8 H Sodium 134.8 L BUN 30 H Glucose 118 H Total Protein 5.3 L Albumin 2.8 L Urine Ketones Crossmatch 06/20/19 06/21/19 21:43 01:30 WBC RBC Hgb Hct Absolute Neuts (auto) Seg Neutrophils % PT Sodium BUN Glucose Total Protein Albumin Urine Ketones TRACE H Crossmatch See Detail - Diagnostic Test Radiology reviewed: Image reviewed, Reports reviewed - EKG Interpretation by Tx EKG shows normal: Sinus rhythm Rate: Normal Rhythm: NSR Campbell/QRS: No: Right axis deviation, Left axis deviation, RBBB, LBBB, IVCD, LAHB/LAFB, LPHB/LPFB, Bifasicular block Voltage: No: Increased voltage, Consistant with LVH, Decreased voltage, Throughout, Limb leads P Waves: No: SD, LAE, Absent, AV Dissociation, Other Heart block present: No: 1st Degree, Mobitz 1, Mobitz 2, CHB (3rd degree block) When compared to previous EKG there are: No significant change - Consults Dr. Shields ([facility]) Time consulted: 02:53 - will accept in transfer Discharge - Discharge Clinical Impression: Anemia due to blood loss, acute GI bleed Qualifiers: GI bleed type/associated pathology: unspecified gastrointestinal hemorrhage type Qualified Code(s): K92.2 - Gastrointestinal hemorrhage, unspecified Condition: Stable Disposition: [facility] Referrals: RON WHITT MD [Primary Care Provider] - Follow up as needed
[2019-06-20 22:17] LABS: ABSOLUTE BASOPHILS # (AUTO) 0.1 10^3/uL (0.0-0.2); ABSOLUTE LYMPHOCYTES (AUTO) 1.7 10^3/uL (0.5-4.7); ABSOLUTE MONOCYTES (AUTO) 0.6 10^3/uL (0.1-1.4); ABSOLUTE NEUT (AUTO) 10.1 10^3/uL (1.7-8.2); BASOPHILS % (AUTO) 0.7 % (0-2); EOSINOPHILS % (AUTO) 0.4 % (0-6); HEMATOCRIT 21.8 % (37.9-51.0); LYMPHOCYTES % (AUTO) 13.3 % (13-45); MEAN CORPUSCULAR HEMOGLOBIN 32.4 pg (27.0-33.4); MEAN CORPUSCULAR VOLUME 95 fl (80-97); MONOCYTES % (AUTO) 4.7 % (3-13); PLATELET COUNT 188 10^3/uL (150-450); RED BLOOD COUNT 2.28 10^6/uL (4.35-5.55); RED CELL DISTRIBUTION WIDTH 12.8 % (11.5-14.0); SEGMENTED NEUTROPHILS % (AUTO) 80.9 % (42-78); TOTAL CELLS COUNTED % (AUTO) 100 %; WHITE BLOOD COUNT 12.5 10^3/uL (4.0-10.5)
[2019-06-20 22:21] LABS: HEMOGLOBIN 7.4 g/dL (13.5-17.0)
[2019-06-20 22:22] LABS: INTERNATIONAL RATION (INR) 1.35; PROTHROMBIN TIME 16.8 SEC (11.4-15.4)
[2019-06-20 22:23] LABS: PARTIAL THROMBOPLASTIN TIME 33.7 SEC (23.5-35.8)
[2019-06-20 22:36] LABS: ALBUMIN 2.8 g/dL (3.5-5.0); ALKALINE PHOSPHATASE 60 U/L (38-126); ANION GAP 13 (5-19); ASPARTATE AMINO TRANSFERASE 18 U/L (17-59); BILIRUBIN,DIRECT 0.2 mg/dL (0.0-0.4); BILIRUBIN,TOTAL 0.7 mg/dL (0.2-1.3); BLOOD UREA NITROGEN 30 mg/dL (7-20); CARBON DIOXIDE 22 mmol/L (22-30); CHLORIDE 100 mmol/L (98-107); GLUCOSE 118 mg/dL (75-110); POTASSIUM 3.8 mmol/L (3.6-5.0); TOTAL PROTEIN 5.3 g/dL (6.3-8.2)
[2019-06-20] MEDS ORDERED: MORPHINE SULFATE 10 MG/ML INJ IV ONE (22:46)
[2019-06-20] MEDS ORDERED: NORMAL SALINE 250 ML IV PRN (23:11)
--- NOTE | 2019-06-20 23:57 | RADIOLOGY REPORT (SQ) ---
EXAM DESCRIPTION: CT ABDOMEN PELVIS WITH IV CONTRAST This exam was performed according to our departmental dose-optimization program which includes automated exposure control, adjustment of the mA and/or kVp according to patient size and/or use of iterative reconstruction technique where applicable. COMPLETED DATE/TME: 06/20/2019 22:46 CLINICAL HISTORY: 58 years, Male, GI bleed. CREAT 0.62 Findings: Visualized lung bases demonstrate bibasilar atelectatic changes. Liver, spleen, pancreas, gallbladder, adrenal glands and kidneys are within normal limits. No hydronephrosis or biliary dilatation. No dilated loops of bowel to suggest obstruction. Mild amount of stool in the colon. Bladder is unremarkable. Small amount of pericardial effusion. Abdominal aorta is moderately calcified without aneurysm. No significant inflammation in the right lower quadrant to suggest acute appendicitis. Appendix is not definitively identified. IMPRESSION: No significant acute disease identified.
[2019-06-21 01:52] LABS: APPEARANCE,URINE CLEAR; BILIRUBIN,URINE NEGATIVE (NEGATIVE); COLOR,URINE YELLOW; GLUCOSE, URINE NEGATIVE (NEGATIVE); KETONES,URINE TRACE mg/dL (NEGATIVE); LEUKOCYTE ESTERASE,URINE NEGATIVE (NEGATIVE); NITRITE,URINE NEGATIVE (NEGATIVE); PROTEIN,URINE NEGATIVE (NEGATIVE); URINE SPECIFIC GRAVITY 1.036; UROBILINOGEN,URINE NEGATIVE mg/dL (<2.0)
[2019-06-21] MEDS ORDERED: MORPHINE SULFATE 10 MG/ML INJ IV ONE ×2 (03:37→08:35)
[2019-06-21] MEDS ORDERED: NORMAL SALINE 1000 ML 1,000 ML IV ONE (03:37)
--- NOTE | 2019-06-21 08:17 | EKG REPORT ---
SEVERITY:- NORMAL ECG - SINUS RHYTHM : Confirmed by: Denisha Owens MD 21-Jun-2019 08:16:47
[2019-06-21 11:25] VITALS: BP 105/67
== END 2019-06-21 10:00 | disposition short-term general hospital (02) ==
LOC: ER 21:11
DX: D62 Acute posthemorrhagic anemia (principal); K92.2 Gastrointestinal hemorrhage, unspecified; Z85.21 Personal history of malignant neoplasm of larynx; Z85.01 Personal history of malignant neoplasm of esophagus
CPT/HCPCS: 93005; 96376; 99285; 96361; 96374; 96375; 86900; 86901; 36415; 36430; 86850; 85025; 85610; 85730; 80053; 81001; 86920; 74177; 93010; P9016; J2270 ×2; J2405; J7030 ×2; J7050

== ENCOUNTER 2019-06-29 14:02 | Emergency (ER) | payer MEDICARE ==
[2019-06-29] MEDS ORDERED: VANCOMYCIN HCL INJ 1000 MG VIAL IV ONE (14:09)
[2019-06-29] MEDS ORDERED: CEFEPIME INJ 1 GM VIAL IM ONE (14:09)
[2019-06-29] MEDS ORDERED: NORMAL SALINE 1000 ML 1,000 ML IV ONE (14:09)
[2019-06-29 14:41] LABS: HEMATOCRIT 17.7 % (37.9-51.0); MEAN CORPUSCULAR HEMOGLOBIN 31.2 pg (27.0-33.4); MEAN CORPUSCULAR VOLUME 95 fl (80-97); PLATELET COUNT 363 10^3/uL (150-450); RED BLOOD COUNT 1.87 10^6/uL (4.35-5.55); RED CELL DISTRIBUTION WIDTH 13.6 % (11.5-14.0); VENOUS BLOOD BASE EXCESS -5.1 mmol/L; VENOUS BLOOD HCO3 19.1 mmol/L (20-32); VENOUS BLOOD PCO2 33.3 mmHg (35-63); VENOUS BLOOD PH 7.38 (7.30-7.42)
[2019-06-29 14:47] LABS: INTERNATIONAL RATION (INR) 1.45; PROTHROMBIN TIME 17.8 SEC (11.4-15.4)
[2019-06-29 14:49] LABS: HEMOGLOBIN 5.8 g/dL (13.5-17.0)
[2019-06-29] MEDS ORDERED: NORMAL SALINE 250 ML IV PRN (14:50)
[2019-06-29] MEDS ORDERED: VANCOMYCIN HCL INJ 1000 MG VIAL ONE (15:02)
[2019-06-29 15:03] LABS: ALBUMIN 2.6 g/dL (3.5-5.0); ALKALINE PHOSPHATASE 51 U/L (38-126); ANION GAP 19 (5-19); ASPARTATE AMINO TRANSFERASE 24 U/L (17-59); BILIRUBIN,DIRECT 0.2 mg/dL (0.0-0.4); BILIRUBIN,TOTAL 0.4 mg/dL (0.2-1.3); BLOOD UREA NITROGEN 18 mg/dL (7-20); CALCIUM 8.8 mg/dL (8.4-10.2); CARBON DIOXIDE 19 mmol/L (22-30); CHLORIDE 93 mmol/L (98-107); GLUCOSE 169 mg/dL (75-110); POTASSIUM 3.6 mmol/L (3.6-5.0); TOTAL PROTEIN 4.7 g/dL (6.3-8.2)
--- NOTE | 2019-06-29 15:15 | RADIOLOGY REPORT (SQ) ---
EXAM DESCRIPTION: CHEST SINGLE VIEW COMPLETED DATE/TIME: 06/29/2019 3:06 pm REASON FOR STUDY: cancer/sob COMPARISON: 04/11/2019 EXAM PARAMETERS: NUMBER OF VIEWS: One view. TECHNIQUE: Single frontal radiographic view of the chest acquired. RADIATION DOSE: NA LIMITATIONS: None. FINDINGS: LUNGS AND PLEURA: No opacities, masses or pneumothorax. No pleural effusion. Unchanged el evation of the right hemidiaphragm. MEDIASTINUM AND HILAR STRUCTURES: No masses. Contour normal. HEART AND VASCULAR STRUCTURES: Heart normal in size. Normal vasculature. BONES: No acute findings. HARDWARE: Radiopaque rings and surgical clips overlie upper thorax. OTHER: Colonic interposition above the liver. IMPRESSION: No evidence of acute cardiopulmonary process. Unchanged elevation of the right hemidiap hragm. TECHNICAL DOCUMENTATION: JOB ID: [id number] [employer]- All Rights Reserved Reading location - IP/workstation name: [email or web address]
[2019-06-29 15:19] LABS: ABSOLUTE LYMPHOCYTES# (MANUAL) 1.5 10^3/uL (0.5-4.7); ABSOLUTE MONOCYTES # (MANUAL) 0.3 10^3/uL (0.1-1.4); BAND NEUTROPHILS % (MANUAL) 1 % (3-5); BASOPHILS % (MANUAL) 0 % (0-2); EOSINOPHILS % (MANUAL) 0 % (0-6); LYMPHOCYTES % (MANUAL) 9 % (13-45); METAMYELOCYTES % (MANUAL) 1 % (0); MONOCYTES % (MANUAL) 2 % (3-13); PLATELET COMMENT ADEQUATE; RBC MORPHOLOGY COMMENT NORMO-CYTIC/CHROMIC; SEGMENTED NEUTROPHILS % (MAN) 87 % (42-78); TOTAL CELLS COUNTED 100
--- NOTE | 2019-06-29 15:22 | ER Document Report ---
ED General - General Chief Complaint: Abscess Stated Complaint: ABCESS Time Seen by Provider: 06/29/19 14:09 Primary Care Provider: RON WHITT MD [Primary Care Provider] - Follow up as needed TRAVEL OUTSIDE OF THE [place] IN LAST 30 DAYS: No - HPI Notes: Patient presents due to throwing up of blood earlier today. He had similar episode last week he was sent to [place] for further higher level care. There is no scoping that was performed. 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 He is not on any blood thinners. He is on steroids. He is also on radiation. 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 Patient is tachycardic and hypotensive in the emergency department. He is nonverbal due to his and can only open his mouth approximately 1 inch but he is able to use a writing board he is mentating well and can express himself through writing. He is alert and oriented at this time. - Related Data Allergies/Adverse Reactions: Tetanus Vaccines and Toxoid Allergy (Verified 06/21/19 03:57) Past Medical History - Social History Smoking Status: Unknown if Ever Smoked Family History: Reviewed & Not Pertinent - Past Medical History Cardiac Medical History: Reports: Hx Hypertension - Recently taken off medication Denies: Hx Coronary Artery Disease, Hx Heart Attack Pulmonary Medical History: Reports: Hx Pneumonia - "A long time ago and it damaged my lungs" 20+ years ago Denies: Hx Asthma, Hx Bronchitis, Hx COPD Neurological Medical History: Denies: Hx Cerebrovascular Accident, Hx Seizures Renal/ Medical History: Denies: Hx Peritoneal Dialysis GI Medical History: Reports: Hx Gastroesophageal Reflux Disease Musculoskeletal Medical History: Denies Hx Arthritis Past Surgical History: Reports: Other - History of tracheostomy, history of laryngectomy - Immunizations Hx Diphtheria, Pertussis, Tetanus Vaccination: No - Patient allergic Review of Systems - Review of Systems Constitutional: No symptoms reported EENT: No symptoms reported Cardiovascular: No symptoms reported Respiratory: No symptoms reported Gastrointestinal: Vomiting, Blood in vomit Genitourinary: No symptoms reported Male Genitourinary: No symptoms reported Musculoskeletal: No symptoms reported Skin: No symptoms reported Hematologic/Lymphatic: No symptoms reported Neurological/Psychological: No symptoms reported Physical Exam - Vital signs Vitals: Temp Pulse Resp BP Pulse Ox 97.5 F 107 H 16 88/59 L 99 06/29/19 14:22 06/29/19 14:22 06/29/19 14:22 06/29/19 14:22 06/29/19 14:22 - General General appearance: Appears well, Alert - HEENT Head: Normocephalic, Atraumatic Eyes: Normal Conjunctiva: Other - Bilateral pallor Cornea: Normal Extraocular movements intact: Yes Pupils: PERRL Mouth/Lips: Other - Large mass left facial cheek extending into the left jawline tender to touch no warmth no erythema - Respiratory Respiratory status: No respiratory distress Chest status: Nontender Breath sounds: Normal - Cardiovascular Rhythm: Tachycardia Heart sounds: Normal auscultation Murmur: No - Abdominal Inspection: Normal Distension: No distension Bowel sounds: Normal - Rectal Stool: Heme positive, Black - Extremities General upper extremity: Normal ROM General lower extremity: Normal ROM - Neurological Neuro grossly intact: Yes Cognition: Normal Course - Re-evaluation Re-evalutation: 06/29/19 15:42 Patient's blood pressure is improved to 90s over 60s after 1 L of fluid. Blood is being high at this point. 2 large-bore IV access established and Protonix IV provided 40 mg. 2 units of blood ordered. Discussed case with [facility] Dr. Teixeira, will accept pt. 06/29/19 15:52 - Vital Signs Vital signs: Temp Pulse Resp BP Pulse Ox 98.0 F 85 27 H 92/61 L 100 06/29/19 17:44 06/29/19 17:44 06/29/19 17:44 06/29/19 17:44 06/29/19 17:44 - Laboratory Result Diagrams: 06/29/19 14:20 06/29/19 14:20 Laboratory results interpreted by me: 06/29/19 06/29/19 06/29/19 14:20 14:20 14:20 WBC 17.0 H RBC 1.87 L Hgb 5.8 L Hct 17.7 L Seg Neuts % (Manual) 87 H Band Neutrophils % 1 L Lymphocytes % (Manual) 9 L Monocytes % (Manual) 2 L Metamyelocytes % 1 H Abs Neuts (Manual) 15.1 H PT 17.8 H VBG pCO2 VBG HCO3 Sodium 130.7 L Chloride 93 L Carbon Dioxide 19 L Glucose 169 H Lactic Acid Total Protein 4.7 L Albumin 2.6 L Crossmatch 06/29/19 06/29/19 06/29/19 14:20 14:20 14:20 WBC RBC Hgb Hct Seg Neuts % (Manual) Band Neutrophils % Lymphocytes % (Manual) Monocytes % (Manual) Metamyelocytes % Abs Neuts (Manual) PT VBG pCO2 33.3 L VBG HCO3 19.1 L Sodium Chloride Carbon Dioxide Glucose Lactic Acid 9.9 H Total Protein Albumin Crossmatch See Detail Discharge - Discharge Clinical Impression: Neoplastic bleed Condition: Critical Disposition: [facility] Admitting Provider: Lluvia Referrals: RON WHITT MD [Primary Care Provider] - Follow up as needed
[2019-06-29] MEDS ORDERED: PANTOPRAZOLE SODIUM 40 MG VIAL IV ONE (15:39)
[2019-06-29 17:45] VITALS: BP 92/61
--- NOTE | 2019-06-29 18:31 | EKG REPORT ---
SEVERITY:- BORDERLINE ECG - SINUS RHYTHM BORDERLINE T WAVE ABNORMALITIES : Confirmed by: Jaron Paiz MD 29-Jun-2019 18:30:32
== END 2019-06-29 17:46 | disposition short-term general hospital (02) ==
LOC: ER 14:02
DX: R58 Hemorrhage, not elsewhere classified (principal); K92.0 Hematemesis; R00.0 Tachycardia, unspecified; I95.9 Hypotension, unspecified; Z79.52 Long term (current) use of systemic steroids; Z79.899 Other long term (current) drug therapy; I10 Essential (primary) hypertension
CPT/HCPCS: 93005; 99285; 96361; 96374; 86900; 86901; 36415; 87040; 36430; 86850; 85025; 85610; 80053; 84484; 86920; 82803; 83605; 71045; 93010; P9016; C9113; J7030; S0164